=== PATIENT | female | born 2000 | race Caucasian/White ===

== ENCOUNTER 2019-09-05 10:22 | Emergency (ER) | payer SELFPAY ==
--- NOTE | ~2019-09-05 | XR_ITS ---
XR ankle RT min 3V DATE: 09/05/2019 10:53 INDICATION: Patient fell. [place] a dorsal foot pop a few days ago. TECHNIQUE: 4 views COMPARISON: None FINDINGS: No fracture or dislocation of the ankle or disruption of the ankle mortise. IMPRESSION: Negative Reviewed, dictated and finalized at location A. IMPRESSION: Negative
--- NOTE | 2019-09-05 10:33 | ED.GENADULT ---
HPI - General Adult General Chief complaint: Extremity Injury, Lower Stated complaint: Right foot injury Time Seen by Provider: 09/05/19 10:33 Source: patient Mode of arrival: ambulatory Limitations: no limitations History of Present Illness HPI narrative: 19-year-old female patient [facility] complaints of right ankle pain x3 days. Patient states that she was playing soccer and felt a pop to her ankle. Patient states she has been trying to wrap it, ice it, taking ibuprofen as well as elevating it and continues to have pain. Patient states she is actually started limping due to the pain. Patient denies any numbness or tingling to the toes. Patient states that most of the pain is to the anterior ankle. Related Data Home Medications Medication Instructions Recorded Confirmed budesonide-formoterol [Symbicort] 2 puff INHALATION Q12H 09/05/19 09/05/19 clonazepam 0.5 mg PO BID 09/05/19 09/05/19 etonogestrel [Nexplanon] 1 implant SUBDERMAL ONCE 09/05/19 09/05/19 lamotrigine 100 mg PO DAILY 09/05/19 09/05/19 montelukast 10 mg PO DAILY 09/05/19 09/05/19 propranolol 10 mg PO TID 09/05/19 09/05/19 Allergies Allergy/AdvReac Type Severity Reaction Status Date / Time No Known Allergies Allergy Verified 09/05/19 10:46 Review of Systems Review of Systems: Narrative: CONSTITUTIONAL: Denies fever, chills, or sweats. EYES: Denies visual changes, redness, or discharge. ENT: Denies rhinorrhea, congestion, sore throat, or otalgia. CARDIOVASCULAR: Denies chest pain, palpitations, or edema. RESPIRATORY: Denies cough or dyspnea. GASTROINTESTINAL: Denies abdominal pain, nausea, vomiting, or diarrhea. GENITOURINARY: Denies dysuria or hematuria. SKIN: Denies rash or itching. MUSCULOSKELETAL: Denies back pain, joint pain, or myalgia. Positive right ankle pain x3 days NEUROLOGIC: Denies headache, numbness, or weakness. PSYCHIATRIC: Denies anxiety or depression. [facility] Comments At the time of my signature I agree with nursing past medical history, surgical, social, and family history. There is no relevant family history pertinent to the presenting complaint. Exam Narrative: Exam Narrative: GENERAL: Well-appearing, well-nourished, and in no acute distress. HEAD: Normocephalic, atraumatic. EYES: PERRLA and EOMI. ENT: Nares clear, no rhinorrhea or epistaxis. Mucous membranes moist. NECK: Supple. No lymphadenopathy CHEST: Clear to auscultation. No respiratory distress. HEART: Regular rate and rhythm. No murmur heard. Normal peripheral pulses. ABDOMEN: Soft, nontender, nondistended, normal active bowel sounds. EXTREMITIES: Patient is able to bear weight and ambulate with pain to the right ankle. The R ankle is without obvious asymmetry or deformity when compared to the L ankle. Patient can flex/extend, invert/linda but does have pain with all motions. No obvious surface trauma, ecchymosis, or soft tissue swelling. Patient has tenderness and pain noted to the middle of the anterior ankle on palpation. No body tenderness to palpation over the medial or lateral malleolus. Pain to the anterior talofibular ligament, no pain noted to palpation of the posterior talofibular ligament, calcaneofibular ligament nontender and without swelling. No tenderness or deformity of the midfoot or over the proximal fifth metatarsal. Good DP and posterior tibial pulses and sensation to light touch normal. Talar tilt test is negative for ligament laxity to valgus or vargus stress. Negative anterior draw. Peroneal nerve is intact with strong eversion and plantar flexion. SKIN: Warm, dry, no rash. NEURO: No focal deficits. Alert and oriented x3. Course Reevaluation(s) Reevaluation #1: Reevaluated patient after her x-ray resulted. Discussed with her that there is no fractures noted on the x-ray at this time. Discussed with her this is most likely a sprain we will go ahead and wrap her right foot and ankle with an Alex wrap. Discussed with her that she can c
[2019-09-05 10:36] VITALS: BP 152/79; PULSE 89; RESP 18; TEMP 36.8; O2SAT 98
== END 2019-09-05 12:10 | disposition home or self-care (01) ==
PROVIDERS: Emergency Provider Nurse Practitioner Family
DX: S93.401A Sprain of unspecified ligament of right ankle, initial encounter (principal); X58.XXXA Exposure to other specified factors, initial encounter; Y93.66 Activity, soccer; J45.909 Unspecified asthma, uncomplicated; F31.9 Bipolar disorder, unspecified; F41.0 Panic disorder [episodic paroxysmal anxiety]
CPT/HCPCS: 73610; 99213; G0463

== ENCOUNTER 2020-02-11 09:46 | Emergency (ER) | payer OTHER, SELFPAY ==
[2020-02-11 09:58] VITALS: BP 123/76; PULSE 86; RESP 18; TEMP 36.7; O2SAT 100
--- NOTE | 2020-02-11 09:59 | ED.FEMALEGU ---
HPI - Female Genitourinary General Chief complaint: Urogenital-Female Stated complaint: UTI Time Seen by Provider: 02/11/20 09:59 Source: patient History of Present Illness HPI Narrative: Patient presents thinking that she has a urinary tract infection. Patient states her symptoms have been going on for the past 3 days. Patient reports low back pain, urinary frequency and dysuria. Patient denies any flank pain denies any vaginal discharge no abdominal pain no pelvic pain no concern for STDs. Patient denies any gross hematuria. Patient states she gets frequent urinary tract infections and her last one was about 2 months ago. Patient states she is eating and drinking well and denies any COVID-19 symptoms and no COVID-19 exposure. Related Data Home Medications Medication Instructions Recorded Confirmed budesonide-formoterol [Symbicort] 2 puff INHALATION Q12H 09/05/19 09/05/19 clonazepam 0.5 mg PO BID 09/05/19 09/05/19 etonogestrel [Nexplanon] 1 implant SUBDERMAL ONCE 09/05/19 09/05/19 lamotrigine 100 mg PO DAILY 09/05/19 09/05/19 montelukast 10 mg PO DAILY 09/05/19 09/05/19 propranolol 10 mg PO TID 09/05/19 09/05/19 Allergies Allergy/AdvReac Type Severity Reaction Status Date / Time No Known Allergies Allergy Verified 09/05/19 10:46 Review of Systems Review of Systems: Narrative: CONSTITUTIONAL: Denies fever, chills, or sweats. EYES: Denies visual changes, redness, or discharge. ENT: Denies rhinorrhea, congestion, sore throat, or otalgia. CARDIOVASCULAR: Denies chest pain, palpitations, or edema. RESPIRATORY: Denies cough or dyspnea. GASTROINTESTINAL: Denies abdominal pain, nausea, vomiting, or diarrhea. GENITOURINARY: Denies hematuria. Reports urinary frequency and burning with urination SKIN: Denies rash or itching. MUSCULOSKELETAL: Denies joint pain, or myalgia. Reports low back pain NEUROLOGIC: Denies headache, numbness, or weakness. PSYCHIATRIC: Denies anxiety or depression. [facility] Comments At time of signature, agree with nursing past medical, surgical, social and family history. There is no relevant family history pertinent to the presenting complaint Exam Narrative: Exam Narrative: GENERAL: Well-appearing, well-nourished, and in no acute distress. HEAD: Normocephalic, atraumatic. EYES: PERRLA and EOMI. ENT: Nares clear, no rhinorrhea or epistaxis. Mucous membranes moist. NECK: Supple. CHEST: Clear to auscultation. No respiratory distress. HEART: Regular rate and rhythm. No murmur heard. Normal peripheral pulses. ABDOMEN: Soft, nontender, nondistended, normal active bowel sounds. EXTREMITIES: Normal range of motion. No edema. SKIN: Warm, dry, no rash. NEURO: No focal deficits. Alert and oriented x3. [place]ak Coma Scale Eye Opening: Spontaneous 4 [place]ak Coma Scale Motor: Obeys Commands 6 [place] Coma Scale Verbal: Oriented 5 [place]ak Coma Scale Total 15 Course Vital Signs Vital signs: Vital Signs Temperature 36.7 C 02/11/20 09:58 Pulse Rate 86 02/11/20 09:58 Respiratory Rate 18 02/11/20 09:58 Blood Pressure 123/76 02/11/20 09:58 Pulse Oximetry 100 02/11/20 09:58 Temperature 36.7 C 02/11/20 09:58 Pulse Rate 86 02/11/20 09:58 Respiratory Rate 18 02/11/20 09:58 Blood Pressure 123/76 02/11/20 09:58 Pulse Oximetry 100 02/11/20 09:58 MDM - Female Genitourinary Differential Diagnosis Differential diagnosis: Likely urinary tract infection, bacterial vaginosis and vaginitis Lab Data Labs: Urine Glucose Negative Reference Range: Negative Urine Bilirubin Negative Reference Range: Negative Urine Ketone Negative Reference Range: Negative Urine Specific [place] 1.025 Reference Range:1.001-1.035 Urine Blood Negative Reference Range: Negative * * Urine pH 6.5 Reference Ran
== END 2020-02-11 10:22 | disposition home or self-care (01) ==
PROVIDERS: Emergency Provider Nurse Practitioner Family; PCP Nurse Practitioner Family
DX: N39.0 Urinary tract infection, site not specified (principal); J45.909 Unspecified asthma, uncomplicated; F41.9 Anxiety disorder, unspecified; F31.9 Bipolar disorder, unspecified
CPT/HCPCS: 81003; 87086; 87088; 99213; G0463

== ENCOUNTER 2020-02-26 19:13 | Emergency (ER) | payer OTHER, SELFPAY ==
[2020-02-26 19:24] VITALS: BP 139/93; PULSE 108; RESP 16; TEMP 37.1; O2SAT 98
--- NOTE | 2020-02-26 19:41 | ED.LOWEXIN ---
HPI - Extremity Injury (Lower) General Chief Complaint: Extremity Injury, Lower Stated Complaint: left foot pain Time Seen by Provider: 02/26/20 19:36 Source: patient and RN notes reviewed Mode of arrival: ambulatory Limitations: no limitations History of Present Illness HPI Narrative: Patient presents today with left foot pain x2 months, worse over the past week. Denies injury or trauma. Denies swelling. Denies numbness or tingling in the leg or foot. Currently rates her pain 7/10 which she has been using Tylenol, ibuprofen, ice, icy hot, and Alex wrap, and support brace without relief. Pain increases with standing and walking. Patient has a telephone appointment scheduled with her primary care provider in 2 days. MD complaint: other (Left foot pain) Related Data Home Medications Medication Instructions Recorded Confirmed budesonide-formoterol [Symbicort] 2 puff INHALATION Q12H 09/05/19 02/26/20 clonazepam 0.5 mg PO BID 09/05/19 02/26/20 etonogestrel [Nexplanon] 1 implant SUBDERMAL ONCE 09/05/19 02/26/20 lamotrigine 100 mg PO DAILY 09/05/19 02/26/20 montelukast 10 mg PO DAILY 09/05/19 02/26/20 propranolol 10 mg PO TID 09/05/19 02/26/20 trazodone 100 mg PO HS 02/26/20 02/26/20 Allergies Allergy/AdvReac Type Severity Reaction Status Date / Time No Known Allergies Allergy Verified 02/26/20 19:31 Review of Systems Review of Systems: Narrative: CONSTITUTIONAL: Denies body aches, fever, chills, or sweats. EYES: Denies visual changes, redness, or discharge. ENT: Denies rhinorrhea, congestion, sore throat, or otalgia. CARDIOVASCULAR: Denies chest pain, palpitations, or edema. RESPIRATORY: Denies cough or dyspnea. GASTROINTESTINAL: Denies abdominal pain, nausea, vomiting, or diarrhea. GENITOURINARY: Denies dysuria or hematuria. SKIN: Denies rash, itching, or wounds. MUSCULOSKELETAL: Denies back pain, joint pain, or myalgia. + Left foot pain NEUROLOGIC: Denies headache, numbness, tingling, or weakness. PSYCH: Denies depression or anxiety. [facility] Comments At time of signature, I have reviewed and agree with nursing past medical, surgical, social and family history unless otherwise noted. Please see nursing chart for further information. There is no relevant family history pertinent to the presenting complaint Exam Narrative: Exam Narrative: GENERAL: Well-appearing, well-nourished, and in no acute distress. HEAD: Normocephalic, atraumatic. EYES: EOMI. No redness or drainage. Conjunctivae normal. ENT: Mucous membranes pink and moist. NECK: Normal AROM. Supple. No lymphadenopathy. CHEST: No respiratory distress. EXTREMITIES: Left foot: Tenderness to plantar fascia, most pronounced with foot in flexed position. No edema noted. No erythema, ecchymosis. Distal sensation intact. Capillary refill normal. Pedal pulse normal. Full range of motion of the ankle and all toes. SKIN: Warm, dry, no rash. Capillary refill normal. Normal skin turgor. NEURO: No focal deficits. Alert and oriented x3. Gait steady. PSYCH: Normal affect. No signs of depression or anxiety. Course Vital Signs Vital signs: Vital Signs Temperature 98.8 F 02/26/20 19:24 Pulse Rate 108 H 02/26/20 19:24 Respiratory Rate 16 02/26/20 19:24 Blood Pressure 139/93 H 02/26/20 19:24 Pulse Oximetry 98 02/26/20 19:24 Temperature 98.8 F 02/26/20 19:24 Pulse Rate 108 H 02/26/20 19:24 Respiratory Rate 16 02/26/20 19:24 Blood Pressure 139/93 H 02/26/20 19:24 Pulse Oximetry 98 02/26/20 19:24 Reviewed. Pt has been instructed to follow up with her PCP regarding her elevated blood pressure today. MDM - Extremity Injury (Lower) Differential Diagnosis Differential diagnosis: Likely other (Foot sprain, heel spur, arthritis, gout, plantar fasciitis, stress fracture) Critical Care Time Critical Care Time Critical Care Time: No Discharge Plan Discharge Clinical Impression: Plantar fasciitis of left foot Patient Dispos
== END 2020-02-26 19:49 | disposition home or self-care (01) ==
PROVIDERS: Emergency Provider Nurse Practitioner; PCP Nurse Practitioner Family
DX: M72.2 Plantar fascial fibromatosis (principal); J45.909 Unspecified asthma, uncomplicated; K21.9 Gastro-esophageal reflux disease without esophagitis; F41.0 Panic disorder [episodic paroxysmal anxiety]; F31.9 Bipolar disorder, unspecified
CPT/HCPCS: 99213; G0463

== ENCOUNTER 2020-04-19 14:31 | Emergency (ER) | payer OTHER, SELFPAY ==
[2020-04-19 14:35] VITALS: BP 134/86; PULSE 90; RESP 18; TEMP 36.4; O2SAT 98
--- NOTE | 2020-04-19 15:13 | ED.WOUNDLAC ---
HPI - Wound/Laceration General Chief Complaint: Wound/Laceration Stated Complaint: right toe pain Time Seen by Provider: 04/19/20 15:05 Source: patient and RN notes reviewed History of Present Illness HPI narrative: Patient is a 19-year-old female who presents the urgent care with complaints of an infected right great toenail. Patient states that it became painful and pussy approximately 1 to 2 weeks ago and she has been using Neosporin, Alcohol, soaking it in plain Dial soap and water, and covering the toe when she is having to work and wear shoes. Patient states that her mother is a nurse and has been directing her on proper care. Patient denies of any increased redness or swelling but states that it is not healing. Denies of any fever, chills, nausea, vomiting. No other acute complaints. No acute distress noted. Patient aware of the plan of care. Some parts of this dictation were generated by voice recognition software and may contain typographical and/or grammatical inaccuracies. Related Data Home Medications Medication Instructions Recorded Confirmed budesonide-formoterol [Symbicort] 2 puff INHALATION Q12H 09/05/19 04/19/20 clonazepam 0.5 mg PO BID 09/05/19 04/19/20 montelukast 10 mg PO DAILY 09/05/19 04/19/20 propranolol 10 mg PO TID 09/05/19 04/19/20 trazodone 100 mg PO HS 02/26/20 04/19/20 albuterol sulfate 2 puff INHALATION Q4H PRN 04/19/20 04/19/20 cetirizine 10 mg PO DAILY 04/19/20 04/19/20 diclofenac sodium 50 mg PO BID 04/19/20 04/19/20 lamotrigine 150 mg PO BID 04/19/20 04/19/20 Allergies Allergy/AdvReac Type Severity Reaction Status Date / Time No Known Allergies Allergy Verified 04/19/20 14:50 Review of Systems Review of Systems: Narrative: CONSTITUTIONAL: Denies fever, chills, or sweats. EYES: Denies visual changes, redness, or discharge. ENT: Denies rhinorrhea, congestion, sore throat, or otalgia. CARDIOVASCULAR: Denies chest pain, palpitations, or edema. RESPIRATORY: Denies cough or dyspnea. GASTROINTESTINAL: Denies abdominal pain, nausea, vomiting, or diarrhea. GENITOURINARY: Denies dysuria or hematuria. SKIN: Reports of redness, swelling and pus draining from the lateral aspect of the right great toe MUSCULOSKELETAL: Denies back pain, joint pain, or myalgia. NEUROLOGIC: Denies headache, numbness, or weakness. All other systems reviewed are negative, except as documented in HPI. [facility] Comments At the time of my signature, I reviewed and agree with the nursing past medical, surgical, social, and family history. There is no relevant family history pertinent to the patient complaint. Exam Narrative: Exam Narrative: GENERAL: This is a well-nourished, well-developed patient, in no apparent distress. HEAD: normocephalic, atraumatic. EYES: PERRL. Sclera clear/white. Vision is grossly intact. EARS: External ears normal, auditory canals clear and without drainage, TMs normal without perforation. Hearing grossly intact. NOSE: External nose normal with no obvious nasal discharge, nares without redness, no rhinorrhea. THROAT: Mucous membranes moist, posterior pharynx clear. NECK: Neck supple, SKIN: 1 cm area of redness and mild edema to the lateral aspect of the right great toe with clear to yellow drainage. Warm, intact with no suspicious lesions or rash, good texture and turgor. NEURO: awake, alert, and oriented to person, place and time. There were no obvious focal neurologic abnormalities. EXTREMITIES: No clubbing, cyanosis, or edema. Positive strong right pedal pulse with capillary refill less than 2 seconds. No lower extremity edema Course Vital Signs Vital signs: Vital Signs Temperature 97.6 F 04/19/20 14:35 Pulse Rate 90 04/19/20 14:35 Respiratory Rate 18 04/19/20 14:35 Blood Pressure 134/86 04/19/20 14:35 Pulse Oximetry 98 04/19/20 14:35 Temperature 97.6 F 04/19/20 14:35 Pulse Rate 90 04/19/20 14:35 Respiratory Rate 18 04/19/20 14:35 Blood Pressure 134/86
== END 2020-04-19 15:20 | disposition home or self-care (01) ==
PROVIDERS: Emergency Provider Nurse Practitioner Family; PCP Nurse Practitioner Family
DX: L60.0 Ingrowing nail (principal); J45.909 Unspecified asthma, uncomplicated; K21.9 Gastro-esophageal reflux disease without esophagitis; F41.9 Anxiety disorder, unspecified; F31.9 Bipolar disorder, unspecified
CPT/HCPCS: 99213; G0463

== ENCOUNTER 2020-09-11 13:08 | Emergency (ER) | payer OTHER, SELFPAY ==
[2020-09-11 13:15] VITALS: BP 143/90; PULSE 120; RESP 16; TEMP 37.2; O2SAT 98
--- NOTE | 2020-09-11 13:31 | ED.WOUNDLAC ---
HPI - Wound/Laceration General Chief Complaint: Wound/Laceration Stated Complaint: Laceration/Wound Source: patient Mode of arrival: ambulatory Limitations: no limitations History of Present Illness HPI narrative: Patient is a 20 year old female who presents with laceration to left forearm. Patient reports forearm cut with a knife. She reports a history of cutting. She reports cutting forearm with knife intentionally. Patient denies suicidal ideation, homicidal ideation or intent to harm self at this time. Patient is slightly tearful and states i am mad for doing this to my self, it's been a long time . Patient reports last admission to mental health facility in 2013. She denies all other complaints at this time. Patient reports tetanus up to date. Related Data Home Medications Medication Instructions Recorded Confirmed budesonide-formoterol [Symbicort] 2 puff INHALATION Q12H 09/05/19 09/11/20 clonazepam 0.5 mg PO BID 09/05/19 09/11/20 montelukast 10 mg PO DAILY 09/05/19 09/11/20 propranolol 10 mg PO TID 09/05/19 09/11/20 trazodone 100 mg PO HS 02/26/20 09/11/20 albuterol sulfate 2 puff INHALATION Q4H PRN 04/19/20 09/11/20 cetirizine 10 mg PO DAILY 04/19/20 09/11/20 diclofenac sodium 50 mg PO BID 04/19/20 09/11/20 lamotrigine 150 mg PO BID 04/19/20 09/11/20 Allergies Allergy/AdvReac Type Severity Reaction Status Date / Time No Known Allergies Allergy Verified 09/11/20 13:25 Review of Systems Review of Systems: Narrative: CONSTITUTIONAL: Denies fever, chills, or sweats. EYES: Denies visual changes, redness, or discharge. ENT: Denies rhinorrhea, congestion, sore throat, or otalgia. CARDIOVASCULAR: Denies chest pain, palpitations, or edema. RESPIRATORY: Denies cough or dyspnea. GASTROINTESTINAL: Denies abdominal pain, nausea, vomiting, or diarrhea. GENITOURINARY: Denies dysuria or hematuria. SKIN:Laceration to left forearm MUSCULOSKELETAL: Denies back pain, joint pain, or myalgia. NEUROLOGIC: Denies headache, numbness, dizziness, or weakness. PSYCHIATRIC: Denies anxiety or depression. [facility], [facility] Past Medical History Medical History (Updated 09/12/20 @ 00:00 by Yomi Brice) Anxiety Bipolar disorder Bronchitis Deliberate self-cutting Depression Foot fracture, right GERD (gastroesophageal reflux disease) Nasal fracture UTI (urinary tract infection) Surgical History Surgical History No significant past surgical history Family History Family History Other No significant family history Social History Social History (Updated 09/11/20 @ 13:36 by ABRAHAM Lacey) Smoking status: Former smoker Alcohol intake: current Alcohol use details: occasional Substance use: never Living arrangements: with family Comments At the time of signature, I have reviewed and agree with nursing past medical, surgical, social, and family history unless otherwise noted. Please see nursing chart for further information. There is no relevant family history pertinent to the presenting complaint. Exam Narrative: Exam Narrative: GENERAL: Well-appearing, well-nourished, and in no acute distress. HEAD: Normocephalic, atraumatic. EYES: EOMI. No redness or drainage. Conjunctiva are normal. ENT: Mucous membranes pink and moist. CHEST: No respiratory distress. HEART: Regular rate and rhythm. EXTREMITIES: Normal range of motion. No edema. SKIN: Approximate 4 cm linear laceration to left forearm, bleeding controlled with dressing at this time. NEURO: No focal deficits. Alert and oriented x3. Gait steady. PSYCH: Normal affect. No signs of depression or anxiety. Course Vital Signs Vital signs: Vital Signs Temperature 37.2 C 09/11/20 13:15 Pulse Rate 120 H 09/11/20 13:15 Respiratory Rate 16 09/11/20 13:15 Blood Pressure 143/90 H 09/11/20 13:15 Pulse Oximetry 98 09/11/20 13:15
== END 2020-09-11 14:20 | disposition home or self-care (01) ==
PROVIDERS: Emergency Provider Nurse Practitioner; PCP Nurse Practitioner Family
DX: S51.812A Laceration without foreign body of left forearm, initial encounter (principal); X78.1XXA Intentional self-harm by knife, initial encounter; Z87.891 Personal history of nicotine dependence; K21.9 Gastro-esophageal reflux disease without esophagitis; F41.9 Anxiety disorder, unspecified; F31.9 Bipolar disorder, unspecified
CPT/HCPCS: 12002; 99212; G0463

== ENCOUNTER 2020-12-25 18:51 | Emergency (ER) | payer OTHER, SELFPAY ==
--- NOTE | ~2020-12-25 | XR_ITS ---
EXAMINATION: XR foot RT min 3V DATE: 12/25/2020 19:19 INDICATION: Right foot pain TECHNIQUE: Dorsoplantar, lateral, and 2 oblique views of the right foot were obtained. COMPARISON: 02/24/2014 FINDINGS: There is soft tissue swelling of the first and second toes and overlying the metatarsals. N o fracture is identified. The joint spaces are normal. Bone alignment is maintained. IMPRESSION: 1. Soft tissue swelling without acute osseous abnormality. Reviewed, dictated and finalized at location A.
[2020-12-25 18:57] VITALS: BP 141/89; PULSE 94; RESP 20; TEMP 37.3; O2SAT 99
--- NOTE | 2020-12-25 19:17 | ED.LOWEXIN ---
HPI - Extremity Injury (Lower) General Chief Complaint: Extremity Injury, Lower Stated Complaint: Possible broken Toe on right Foot Time Seen by Provider: 12/25/20 19:17 Source: patient, RN notes reviewed and old records reviewed Mode of arrival: ambulatory Limitations: no limitations History of Present Illness HPI Narrative: 20 year old female who presents to express care with complaints of pain to her right great toe and up into her dorsal foot after accidently hitting her toe with a metal tennis racket. Patient has pain mainly to the top of the proximal right big toe. Patient states that she can hardly bear weight to her right foot. Patient states that she has applied ice to her toe and dorsal foot. complaint: foot injury Onset (ago): minute(s) (30 minutes ago) Injury: Right: toes Type of Injury: blunt Place: street/outdoors Severity: severe Severity scale (1-10): 7 Relieving factors: cold therapy Exacerbating factors: weight bearing Context: direct blow Associated symptoms: swelling Treatments prior to arrival: cold therapy Related Data Home Medications Medication Instructions Recorded Confirmed budesonide-formoterol [Symbicort] 2 puff INHALATION Q12H 09/05/19 12/25/20 clonazepam 0.5 mg PO BID 09/05/19 12/25/20 montelukast 10 mg PO DAILY 09/05/19 12/25/20 propranolol 10 mg PO TID 09/05/19 12/25/20 trazodone 100 mg PO HS 02/26/20 09/11/20 albuterol sulfate 2 puff INHALATION Q4H PRN 04/19/20 09/11/20 cetirizine 10 mg PO DAILY 04/19/20 12/25/20 lamotrigine 150 mg PO BID 04/19/20 12/25/20 Allergies Allergy/AdvReac Type Severity Reaction Status Date / Time No Known Allergies Allergy Verified 09/11/20 13:25 Review of Systems Review of Systems: Narrative: CONSTITUTIONAL: Denies fever, chills, or sweats. EYES: Denies visual changes, redness, or discharge. ENT: Denies rhinorrhea, congestion, sore throat, or otalgia. CARDIOVASCULAR: Denies chest pain, palpitations, or edema. RESPIRATORY: Denies cough or dyspnea. GASTROINTESTINAL: Denies abdominal pain, nausea, vomiting, or diarrhea. GENITOURINARY: Denies dysuria or hematuria. SKIN: Denies rash or itching. MUSCULOSKELETAL: Denies back pain,positive pain to right great toe and dorsal foot, or myalgia. NEUROLOGIC: Denies headache, numbness, or weakness. PSYCHIATRIC: Positive for history of anxiety or depression. All systems reviewed & are unremarkable except as noted in HPI and below PMFSH Past Medical History Medical History Anxiety Bipolar disorder Bronchitis Deliberate self-cutting Depression Foot fracture, right GERD (gastroesophageal reflux disease) Nasal fracture UTI (urinary tract infection) Surgical History Surgical History No significant past surgical history Family History Family History Other No significant family history Social History Social History Smoking status: Former smoker Alcohol intake: current Alcohol use details: occasional Substance use: never Gender identity (if verbalized by the patient): Female Comments At time of signature, agree with nursing past medical, surgical, social and family history. There is no relevant family history pertinent to the presenting complaint Exam Narrative: Exam Narrative: GENERAL: Well-appearing, well-nourished, and in no acute distress. HEAD: Normocephalic, atraumatic. EYES: PERRLA and EOMI. ENT: Nares clear, no rhinorrhea or epistaxis. Mucous membranes moist.TM's normal with good light reflex, throat pink with no lesions or exudates no tonsil enlargement. NECK: Supple. no lymphadenopathy CHEST: Clear to auscultation. No respiratory distress.SAO2 99% on room air HEART: Regular rate and rhythm. No murmur heard. Normal peripheral pulses. ABDOMEN: Soft, nontender, nond
--- NOTE | 2020-12-25 19:45 | ED.LOWEXIN ---
HPI - Extremity Injury (Lower) General Chief Complaint: Extremity Injury, Lower Stated Complaint: Possible broken Toe on right Foot Time Seen by Provider: 12/25/20 19:17 Source: patient, RN notes reviewed and old records reviewed Mode of arrival: ambulatory Limitations: no limitations Related Data Home Medications Medication Instructions Recorded Confirmed budesonide-formoterol [Symbicort] 2 puff INHALATION Q12H 09/05/19 12/25/20 clonazepam 0.5 mg PO BID 09/05/19 12/25/20 montelukast 10 mg PO DAILY 09/05/19 12/25/20 propranolol 10 mg PO TID 09/05/19 12/25/20 trazodone 100 mg PO HS 02/26/20 09/11/20 albuterol sulfate 2 puff INHALATION Q4H PRN 04/19/20 09/11/20 cetirizine 10 mg PO DAILY 04/19/20 12/25/20 lamotrigine 150 mg PO BID 04/19/20 12/25/20 Allergies Allergy/AdvReac Type Severity Reaction Status Date / Time No Known Allergies Allergy Verified 09/11/20 13:25 Review of Systems Review of Systems: Narrative: CONSTITUTIONAL: Denies fever, chills, or sweats. EYES: Denies visual changes, redness, or discharge. ENT: Denies rhinorrhea, congestion, sore throat, or otalgia. CARDIOVASCULAR: Denies chest pain, palpitations, or edema. RESPIRATORY: Denies cough or dyspnea. GASTROINTESTINAL: Denies abdominal pain, nausea, vomiting, or diarrhea. GENITOURINARY: Denies dysuria or hematuria. SKIN: Denies rash or itching. MUSCULOSKELETAL: Denies back pain, positive pain to right great toe, or myalgia. NEUROLOGIC: Denies headache, numbness, or weakness. PSYCHIATRIC: Positive history of anxiety or depression. All systems reviewed & are unremarkable except as noted in HPI and below PMFSH Past Medical History Medical History Anxiety Bipolar disorder Bronchitis Deliberate self-cutting Depression Foot fracture, right GERD (gastroesophageal reflux disease) Nasal fracture UTI (urinary tract infection) Surgical History Surgical History No significant past surgical history Family History Family History Other No significant family history Social History Social History Smoking status: Former smoker Alcohol intake: current Alcohol use details: occasional Substance use: never Gender identity (if verbalized by the patient): Female Comments At time of signature, agree with nursing past medical, surgical, social and family history. There is no relevant family history pertinent to the presenting complaint Exam Narrative: Exam Narrative: GENERAL: Well-appearing, well-nourished, and in no acute distress. HEAD: Normocephalic, atraumatic. EYES: PERRLA and EOMI. ENT: Nares clear, no rhinorrhea or epistaxis. Mucous membranes moist. NECK: Supple. No lymphadenopathy CHEST: Clear to auscultation. No respiratory distress. SaO2 99% on room air HEART: Regular rate and rhythm. No murmur heard. Normal peripheral pulses. ABDOMEN: Soft, nontender, nondistended, normal active bowel sounds. EXTREMITIES: Normal range of motion. No edema. With exception to right great toe which is swollen with pain and decreased mobility strong right pedal pulse with brisk nail bed refill SKIN: Warm, dry, no rash. NEURO: No focal deficits. Alert and oriented x3. Course Vital Signs Vital signs: Vital Signs Temperature 37.3 C 12/25/20 18:57 Pulse Rate 94 12/25/20 18:57 Respiratory Rate 20 12/25/20 18:57 Blood Pressure 141/89 H 12/25/20 18:57 Pulse Oximetry 99 12/25/20 18:57 Temperature 37.3 C 12/25/20 18:57 Pulse Rate 94 12/25/20 18:57 Respiratory Rate 20 12/25/20 18:57 Blood Pressure 141/89 H 12/25/20 18:57 Pulse Oximetry 99 12/25/20 18:57 Critical Care Time Critical Care Time Critical Care Time: No Discharge Plan Discharge Clinical Impression: Contusion of foot including to
== END 2020-12-25 19:55 | disposition home or self-care (01) ==
PROVIDERS: Emergency Provider Registered Nurse; PCP Nurse Practitioner Family
DX: S90.31XA Contusion of right foot, initial encounter (principal); S90.111A Contusion of right great toe without damage to nail, initial encounter; W21.12XA Struck by tennis racquet, initial encounter; F41.9 Anxiety disorder, unspecified; F31.9 Bipolar disorder, unspecified; K21.9 Gastro-esophageal reflux disease without esophagitis
CPT/HCPCS: 73630; 99213; G0463

== ENCOUNTER 2021-06-22 18:01 | Emergency (ER) | payer OTHER, SELFPAY ==
[2021-06-22 18:16] VITALS: BP 133/94; PULSE 122; RESP 16; TEMP 37.7; O2SAT 99
--- NOTE | 2021-06-22 18:48 | ED.URI ---
HPI - URI/Sore Throat General Chief Complaint: Upper Respiratory Infection Stated Complaint: sore throat ear pain aches Time Seen by Provider: 06/22/21 18:48 Source: patient History of Present Illness HPI Narrative: Patient presents with a positive exposure to COVID-19 4 days ago and symptoms started 1 day ago. Patient is fully vaccinated has a nasal congestion scratchy throat cough and bilateral ear pain. No shortness of breath no chest pain. Related Data Home Medications Medication Instructions Recorded Confirmed budesonide-formoterol [Symbicort] 2 puff INHALATION Q12H 09/05/19 06/22/21 clonazepam 0.5 mg PO BID 09/05/19 06/22/21 montelukast 10 mg PO DAILY 09/05/19 06/22/21 propranolol 10 mg PO TID 09/05/19 06/22/21 albuterol sulfate 2 puff INHALATION Q4H PRN 04/19/20 06/22/21 cetirizine 10 mg PO DAILY 04/19/20 06/22/21 lamotrigine 150 mg PO BID 04/19/20 06/22/21 Allergies Allergy/AdvReac Type Severity Reaction Status Date / Time No Known Allergies Allergy Verified 06/22/21 18:32 Review of Systems Review of Systems: CONSTITUTIONAL: Denies chills, or sweats. Reports fever and generalized body aches EYES: Denies visual changes, redness, or discharge. ENT: Denies otalgia. Reports nasal congestion runny nose and sore throat CARDIOVASCULAR: Denies chest pain, palpitations, or edema. RESPIRATORY: Denies dyspnea. Reports occasional cough GASTROINTESTINAL: Denies abdominal pain, nausea, vomiting, or diarrhea. GENITOURINARY: Denies dysuria or hematuria. SKIN: Denies rash or itching. MUSCULOSKELETAL: Denies back pain, joint pain, or myalgia. Reports generalized body aches NEUROLOGIC: Denies headache, numbness, or weakness. PSYCHIATRIC: Denies anxiety or depression. [facility] Past Medical History Medical History Anxiety Bipolar disorder Bronchitis Deliberate self-cutting Depression Foot fracture, right GERD (gastroesophageal reflux disease) Nasal fracture UTI (urinary tract infection) Surgical History Surgical History No significant past surgical history Family History Family History Other No significant family history Social History Social History Smoking status: Former smoker Alcohol intake: current Alcohol use details: occasional Substance use: never Gender identity (if verbalized by the patient): Female Comments At time of signature, agree with nursing past medical, surgical, social and family history. There is no relevant family history pertinent to the presenting complaint Exam Narrative: The patient is a well-developed, well-nourished in no acute distress. SKIN: Skin is warm and dry without erythema, swelling or exudate. There is good turgor. No tenting. HEAD: Atraumatic. Normocephalic. No temporal or scalp tenderness. EYES: Moist and bright. Sclera and conjunctivae normal. No discharge. PERRLA. Extraocular motions intact. Gross visual acuity intact. EARS: Pinna is normal shape and contour. Clear external auditory canals. TM pearly mijares with good cone of light, no erythema or suppuration. Bilateral cerumen noted no gross hearing deficit. NOSE: pink, moist mucosa with good air movement. Clear rhinorrhea without nasal flaring. Septum midline. Mouth: moist mucous membranes. THROAT; mild erythema noted to posterior oropharynx with moderate postnasal drainage. Without exudate or ulceration.. Uvula midline. Normal movement of soft palate. NECK: Supple and nontender with full range of motion without discomfort. No meningeal signs. LUNGS: Equal and bilateral breath sounds without wheezes, rales or rhonchi. CHEST: The chest wall is without retractions or use of accessory muscles. HEART: Has a regular rate and rhythm without murmur, gallops, click or rub. ABDOMEN: Soft, nonte
[2021-06-25 19:02] LABS: SARS-CoV-2 RNA PCR Positive
== END 2021-06-22 19:10 | disposition home or self-care (01) ==
PROVIDERS: Emergency Provider Nurse Practitioner Family; PCP Nurse Practitioner Family
DX: U07.1 COVID-19 (principal); Z87.891 Personal history of nicotine dependence; K21.9 Gastro-esophageal reflux disease without esophagitis; F31.9 Bipolar disorder, unspecified; F41.9 Anxiety disorder, unspecified
CPT/HCPCS: 99213; C9803; G0463; U0003; U0005

== ENCOUNTER 2021-08-03 08:03 | Emergency (ER) | payer OTHER, SELFPAY ==
[2021-08-03 08:07] VITALS: BP 136/68; PULSE 83; RESP 16; TEMP 36.8; O2SAT 100
--- NOTE | 2021-08-03 08:22 | ED.DENTAL ---
HPI - Dental/Oral General Chief complaint: Dental/Oral Stated complaint: Dental pain Time Seen by Provider: 08/03/21 08:22 Source: patient Mode of arrival: ambulatory History of Present Illness HPI Narrative: 21-year-old female presented for complaint of left lower dental pain for approximately 1 week. She endorses a history of dental abscesses and is scheduled for possible extraction on 08/17/2021 with [facility]. They told her to be seen sooner for antibiotic treatment for her complaints. Has been taking Aleve for pain which helps, also doing salt water gargles. States she had a fever over 101 yesterday. She denies difficulty swallowing or breathing, wheezing, associated nausea, vomiting, headache, dizziness, ear pain. MD Complaint: tooth pain Related Data Home Medications Medication Instructions Recorded Confirmed budesonide-formoterol [Symbicort] 2 puff INHALATION Q12H 09/05/19 08/03/21 clonazepam 0.5 mg PO BID 09/05/19 08/03/21 montelukast 10 mg PO DAILY 09/05/19 08/03/21 propranolol 10 mg PO TID 09/05/19 08/03/21 albuterol sulfate 2 puff INHALATION Q4H PRN 04/19/20 08/03/21 cetirizine 10 mg PO DAILY 04/19/20 08/03/21 lamotrigine 150 mg PO BID 04/19/20 08/03/21 Allergies Allergy/AdvReac Type Severity Reaction Status Date / Time No Known Allergies Allergy Verified 08/03/21 08:19 Review of Systems Review of Systems: CONSTITUTIONAL: Denies body aches, fever, chills ENT: Denies rhinorrhea, congestion, sore throat, or otalgia. Reports dental pain CARDIOVASCULAR: Denies chest pain, palpitations RESPIRATORY: Denies cough or dyspnea. SKIN: Denies rash, itching, or wounds. MUSCULOSKELETAL: Denies myalgia. NEUROLOGIC: Denies headache, numbness, tingling, or weakness. [facility] Past Medical History Medical History Anxiety Bipolar disorder Bronchitis Deliberate self-cutting Depression Foot fracture, right GERD (gastroesophageal reflux disease) Nasal fracture UTI (urinary tract infection) Surgical History Surgical History No significant past surgical history Family History Family History Other No significant family history Social History Social History Smoking status: Former smoker Alcohol intake: current Alcohol use details: occasional Substance use: never Gender identity (if verbalized by the patient): Female Comments At time of signature, I have reviewed and agree with nursing past medical, surgical, social and family history unless otherwise noted. Please see nursing chart for further information. There is no relevant family history pertinent to the presenting complaint Exam Narrative: GENERAL: Appears in pain; in no acute distress. HEAD: Normocephalic, atraumatic. EYES: EOMI. No redness or drainage. Conjunctivae normal. ENT: Left lower dental pain reported around #18, 19, minimal redness/swelling to gums without apparent abscess or drainage; tender to palpation, teeth are discolored/dark at gumline; Mucous membranes pink and moist. TMs normal bilaterally. Throat normal. Uvula midline. NECK: Normal AROM. Supple. No lymphadenopathy. CHEST: No respiratory distress. Clear to auscultation. HEART: Regular rate and rhythm. No murmur appreciated. ABDOMEN: Soft, nontender, nondistended, normal active bowel sounds. SKIN: Warm, dry, no rash. Normal skin turgor. NEURO: No focal deficits. Alert and oriented x3. Gait steady. Course Course Emergency Course: Patient is aware of diagnosis, understands and agrees to treatment plan. Anticipatory guidance given. Patient agrees to follow-up as directed and is aware of reasons to seek care at the emergency department. Portions of this record may have been created with voice recognition software Level of Care: Expr
== END 2021-08-03 08:35 | disposition home or self-care (01) ==
PROVIDERS: Emergency Provider Nurse Practitioner Family; PCP Nurse Practitioner Family
DX: K08.89 Other specified disorders of teeth and supporting structures (principal); Z87.891 Personal history of nicotine dependence; K21.9 Gastro-esophageal reflux disease without esophagitis; F31.9 Bipolar disorder, unspecified; F41.9 Anxiety disorder, unspecified
CPT/HCPCS: 99213; G0463

== ENCOUNTER 2022-07-13 19:13 | Emergency (ER) | payer OTHER, SELFPAY ==
[2022-07-13 19:16] VITALS: BP 132/83; PULSE 104; RESP 20; TEMP 37.2; O2SAT 97
--- NOTE | 2022-07-13 19:23 | ED.FEMALEGU ---
HPI - Female Genitourinary General Chief complaint: Urogenital-Female Stated complaint: Poss UTI Time Seen by Provider: 07/13/22 19:23 History of Present Illness HPI Narrative: PATIENT PRESENTS WITH URINARY SYMPTOMS NO GROSS HEMATURIA NO PELVIC PAIN NO FLANK PAIN NO CONCERN FOR STD Related Data Home Medications Medication Instructions Recorded Confirmed budesonide-formoterol HFA 160 2 puff inhalation Q12H 09/05/19 08/03/21 mcg-4.5 mcg/actuation aerosol inhaler (Symbicort) clonazepam 0.5 mg tablet 0.5 mg PO BID 09/05/19 08/03/21 montelukast 10 mg tablet 10 mg PO DAILY 09/05/19 08/03/21 propranolol 10 mg tablet 10 mg PO TID 09/05/19 08/03/21 albuterol sulfate 90 mcg/actuation 2 puff inhalation Q4H PRN sob 04/19/20 08/03/21 aerosol inhaler cetirizine 10 mg tablet 10 mg PO DAILY 04/19/20 08/03/21 lamotrigine 150 mg tablet 150 mg PO BID 04/19/20 08/03/21 Allergies Allergy/AdvReac Type Severity Reaction Status Date / Time nitrofurantoin Allergy Rash Verified 07/13/22 19:19 [From Macrobid] Review of Systems Review of Systems: CONSTITUTIONAL: DENIES FEVER, CHILLS, OR SWEATS. EYES: DENIES VISUAL CHANGES, REDNESS, OR DISCHARGE. ENT: DENIES RHINORRHEA, CONGESTION, SORE THROAT, OR OTALGIA. CARDIOVASCULAR: DENIES CHEST PAIN, PALPITATIONS, OR EDEMA. RESPIRATORY: DENIES COUGH OR DYSPNEA. GASTROINTESTINAL: DENIES ABDOMINAL PAIN, NAUSEA, VOMITING, OR DIARRHEA. GENITOURINARY: DENIES DYSURIA OR HEMATURIA. SKIN: DENIES RASH OR ITCHING. MUSCULOSKELETAL: DENIES BACK PAIN, JOINT PAIN, OR MYALGIA. NEUROLOGIC: DENIES HEADACHE, NUMBNESS, OR WEAKNESS. PSYCHIATRIC: DENIES ANXIETY OR DEPRESSION. [facility] Past Medical History Medical History Anxiety Bipolar disorder Bronchitis Deliberate self-cutting Depression Foot fracture, right GERD (gastroesophageal reflux disease) Nasal fracture UTI (urinary tract infection) Surgical History Surgical History No significant past surgical history Family History Family History Other No significant family history Social History Social History Smoking status: Former smoker Alcohol intake: current Alcohol use details: occasional Substance use: never Living arrangements: with family Gender identity (if verbalized by the patient): Female Comments AT TIME OF SIGNATURE, AGREE WITH NURSING PAST MEDICAL, SURGICAL, SOCIAL AND FAMILY HISTORY. THERE IS NO RELEVANT FAMILY HISTORY PERTINENT TO THE PRESENTING COMPLAINT Exam Narrative: GENERAL: WELL-APPEARING, WELL-NOURISHED, AND IN NO ACUTE DISTRESS. HEAD: NORMOCEPHALIC, ATRAUMATIC. EYES: PERRLA AND EOMI. ENT: NARES CLEAR, NO RHINORRHEA OR EPISTAXIS. MUCOUS MEMBRANES MOIST. NECK: SUPPLE. CHEST: CLEAR TO AUSCULTATION. NO RESPIRATORY DISTRESS. HEART: REGULAR RATE AND RHYTHM. NO MURMUR HEARD. NORMAL PERIPHERAL PULSES. ABDOMEN: SOFT, NONTENDER, NONDISTENDED, NORMAL ACTIVE BOWEL SOUNDS.NO PELVIC PAIN NO FLANK PAIN NO ABDOMINAL PAIN EXTREMITIES: NORMAL RANGE OF MOTION. NO EDEMA. SKIN: WARM, DRY, NO RASH. NEURO: NO FOCAL DEFICITS. ALERT AND ORIENTED X3. BOB COMA SCALE EYE OPENING: SPONTANEOUS 4 BOB COMA SCALE MOTOR: OBEYS COMMANDS 6 BOB COMA SCALE VERBAL: ORIENTED 5 BOB COMA SCALE TOTAL 15 Course Course Level of Care: Express Care Visit Vital Signs Vital signs: Vital Signs Temperature 37.2 C 07/13/22 19:16 Pulse Rate 104 H 07/13/22 19:16 Respiratory Rate 07/13/22 19:16 Blood Pressure 132/83 07/13/22 19:16 Pulse Oximetry 97 07/13/22 19:16 Oxygen Delivery Room Air 07/13/22 19:16 Temperature 37.2 C 07/13/22 19:16 Pulse Rate 104 H 07/13/22 19:16 Respiratory Rate 07/13/22 19:16 Blood Pressure 132/83 07/13/22 19:16 Pulse Oximetry 97
== END 2022-07-13 19:34 | disposition home or self-care (01) ==
PROVIDERS: Emergency Provider Nurse Practitioner Family; PCP Nurse Practitioner Family
DX: N39.0 Urinary tract infection, site not specified (principal); Z87.891 Personal history of nicotine dependence; K21.9 Gastro-esophageal reflux disease without esophagitis; F31.9 Bipolar disorder, unspecified; F41.9 Anxiety disorder, unspecified
CPT/HCPCS: 81003; 87086; 87088; 99213; G0463

== ENCOUNTER 2022-11-08 18:46 | Emergency (ER) | payer OTHER, SELFPAY ==
[2022-11-08 18:50] VITALS: BP 132/80; PULSE 111; RESP 16; TEMP 36.3; O2SAT 99
--- NOTE | 2022-11-08 18:55 | ED.SKABFB ---
HPI - Skin/Abscess/Foreign Bdy General Stated complaint: rash on right hand Source: patient and RN notes reviewed History of Present Illness HPI narrative: 22 yo F presents to urgent care with complaints of an itchy rash to her right index finger x 17 days. Pt states she first noticed after helping a friend move. Pt states it will itch and then burn at times. Pt denies any drainage from the rash. Pt denies any limited ROM, numbness, tingling, or other complaints. Pt has used OTC cortizone cream and Benadryl without relief. Related Data Home Medications Medication Instructions Recorded Confirmed budesonide-formoterol HFA 160 2 puff inhalation Q12H 09/05/19 11/08/22 mcg-4.5 mcg/actuation aerosol inhaler (Symbicort) clonazepam 0.5 mg tablet 0.5 mg PO BID 09/05/19 11/08/22 montelukast 10 mg tablet 10 mg PO DAILY 09/05/19 11/08/22 propranolol 10 mg tablet 10 mg PO TID 09/05/19 11/08/22 albuterol sulfate 90 mcg/actuation 2 puff inhalation Q4H PRN sob 04/19/20 11/08/22 aerosol inhaler cetirizine 10 mg tablet 10 mg PO DAILY 04/19/20 11/08/22 lamotrigine 150 mg tablet 150 mg PO BID 04/19/20 11/08/22 albuterol sulfate 2.5 mg/3 mL See Rx Instructions .Route .COMPLEX 11/08/22 11/08/22 (0.083 %) solution for nebulization fluoxetine 20 mg capsule 20 mg PO DAILY 11/08/22 11/08/22 levothyroxine 25 mcg tablet 25 mcg PO DAILY 11/08/22 11/08/22 Allergies Allergy/AdvReac Type Severity Reaction Status Date / Time nitrofurantoin Allergy Rash Verified 11/08/22 19:00 [From [employer]] Review of Systems Review of Systems: Pertinent positives and pertinent negatives per HPI. PMFSH Past Medical History Medical History Anxiety Bipolar disorder Bronchitis Deliberate self-cutting Depression Foot fracture, right GERD (gastroesophageal reflux disease) Nasal fracture UTI (urinary tract infection) Surgical History Surgical History No significant past surgical history Family History Family History Other No significant family history Social History Social History Smoking status: Former smoker Alcohol intake: current Alcohol use details: occasional Substance use: never Living arrangements: with family Gender identity (if verbalized by the patient): Female Comments At the time of my signature, I reviewed and agree with the nursing past medical, surgical, social, and family history. There is no relevant family history pertinent to the patient complaint. Exam Narrative: GENERAL: This is a well-nourished, well-developed patient, in no apparent distress. HEAD: normocephalic, atraumatic. EYES: Sclera clear/white. Vision is grossly intact. EARS: External ears normal, auditory canals clear and without drainage, TMs normal without perforation. Hearing grossly intact. NOSE: External nose normal with no obvious nasal discharge, nares without redness, no rhinorrhea. THROAT: Mucous membranes moist, posterior pharynx clear. NECK: Neck supple, non-tender without lymphadenopathy, masses or thyromegaly. CARDIOVASCULAR: Regular rate RESPIRATORY: No respiratory distress GASTROINTESTINAL: Abdomen soft, non-tender, nondistended. Bowel sounds are active. No hepato-splenomegaly, or palpable masses. No guarding. SKIN: patch of erythremia with few clear fluid papules noted to right index finger, dorsal side, approximately 2 cm x 2 cm. no drainage noted. no areas of induration noted. NEURO: awake, alert, and oriented to person, place and time. There were no obvious focal neurologic abnormalities. EXTREMITIES: No clubbing, cyanosis, or edema. No joint tenderness, effusion, or edema noted. Course Course Level of Care: Express Care Visit Vital Signs Vital signs: Vital Signs Temperature 97.
== END 2022-11-08 19:10 | disposition home or self-care (01) ==
PROVIDERS: Emergency Provider Nurse Practitioner Family; PCP Nurse Practitioner Family
DX: L30.9 Dermatitis, unspecified (principal); Z87.891 Personal history of nicotine dependence; K21.9 Gastro-esophageal reflux disease without esophagitis; F31.9 Bipolar disorder, unspecified; F41.9 Anxiety disorder, unspecified
CPT/HCPCS: 99213; G0463

== ENCOUNTER 2023-04-28 14:28 | Emergency (ER) | payer OTHER, SELFPAY ==
[2023-04-28 14:40] VITALS: BP 118/71; PULSE 77; RESP 20; TEMP 36.4; O2SAT 99
--- NOTE | 2023-04-28 14:48 | ED.URI ---
HPI - URI/Sore Throat General Chief Complaint: Upper Respiratory Infection Stated Complaint: Headache/Sore Throat Time Seen by Provider: 04/28/23 14:55 Source: patient and RN notes reviewed Mode of arrival: ambulatory Limitations: no limitations History of Present Illness HPI Narrative: 22-year-old female presents concern for COVID symptoms and COVID exposure. Reports she has been exposed twice over the last week. She reports she did a test earlier in her symptoms that was negative. Reports sore throat headache worsened yesterday. She reports she has been taking DayQuil. She denies fever, aches, chills. MD elicited complaint: cough and sore throat Related Data Home Medications Medication Instructions Recorded Confirmed budesonide-formoterol HFA 160 2 puff inhalation Q12H 09/05/19 04/28/23 mcg-4.5 mcg/actuation aerosol inhaler (Symbicort) clonazepam 0.5 mg tablet 0.5 mg PO BID 09/05/19 04/28/23 montelukast 10 mg tablet 10 mg PO DAILY 09/05/19 04/28/23 propranolol 10 mg tablet 10 mg PO TID 09/05/19 04/28/23 albuterol sulfate 90 mcg/actuation 2 puff inhalation Q4H PRN sob 04/19/20 04/28/23 aerosol inhaler cetirizine 10 mg tablet 10 mg PO DAILY 04/19/20 04/28/23 lamotrigine 150 mg tablet 150 mg PO BID 04/19/20 04/28/23 albuterol sulfate 2.5 mg/3 mL See Rx Instructions .Route .COMPLEX 11/08/22 04/28/23 (0.083 %) solution for nebulization fluoxetine 20 mg capsule 20 mg PO DAILY 11/08/22 04/28/23 levothyroxine 25 mcg tablet 25 mcg PO DAILY 11/08/22 04/28/23 Allergies Allergy/AdvReac Type Severity Reaction Status Date / Time nitrofurantoin Allergy Rash Verified 04/28/23 14:48 [From Macrobid] Review of Systems Review of Systems: CONSTITUTIONAL: Denies malaise, chills, sweats, or fever. EYES: Denies visual changes, redness, or discharge. ENT: Reports rhinorrhea, congestion, and sore throat. CARDIOVASCULAR: Denies chest pain, palpitations, or edema. RESPIRATORY: Reports cough. Denies dyspnea. GASTROINTESTINAL: Denies abdominal pain, nausea, vomiting, diarrhea SKIN: Denies rash or itching. MUSCULOSKELETAL: Denies myalgia. NEUROLOGIC: Reports headache. All systems reviewed & are unremarkable except as noted in HPI and below PMFSH Past Medical History Medical History Anxiety Bipolar disorder Bronchitis Deliberate self-cutting Depression Foot fracture, right GERD (gastroesophageal reflux disease) Nasal fracture UTI (urinary tract infection) Surgical History Surgical History No significant past surgical history Family History Family History Other No significant family history Social History Social History Smoking status: Former smoker Alcohol intake: current Alcohol use details: occasional Substance use: never Living arrangements: with family Gender identity (if verbalized by the patient): Female Comments At time of signature, agree with nursing past medical, surgical, social and family history. There is no relevant family history pertinent to the presenting complaint Exam Narrative: GENERAL: Well-appearing, well-nourished, and in no acute distress. HEAD: Normocephalic EYES: PERRLA, conjunctivae clear ENT: Nares clear. Mucous membranes moist. TM pearly almeida with sharp light reflex bilaterally; no tragal tenderness. Oropharynx not erythematous without lesions. Tonsils not enlarged and without exudate, no drooling, no hoarseness, no trismus, uvula midline. NECK: Supple. No lymphadenopathy CHEST: Clear to auscultation, breath sounds equal. No wheezing, rhonchi, rales, or stridor. No respiratory distress, speaks in full sentences. HEART: Regular rate and rhythm. No murmur heard. SKIN: Warm, dry, no rash. NEURO: Alert and oriented x3. PSYCH: Normal mood
[2023-04-28 14:50] VITALS: BP 118/71; PULSE 77; RESP 20; TEMP 36.4; O2SAT 99
== END 2023-04-28 15:16 | disposition home or self-care (01) ==
PROVIDERS: Emergency Provider Nurse Practitioner; PCP Nurse Practitioner Family
DX: J06.9 Acute upper respiratory infection, unspecified (principal); Z79.899 Other long term (current) drug therapy; Z87.891 Personal history of nicotine dependence; Z20.822 Contact with and (suspected) exposure to COVID-19
CPT/HCPCS: 87426; 99213; C9803; G0463

== ENCOUNTER 2023-06-11 10:18 | Outpatient (CLI) | payer OTHER, SELFPAY ==
[2023-06-11 19:36] LABS: Appearance Urine Cloudy (Clear); Bacteria Urine 2+ /hpf; Bilirubin Urine Negative (Negative); Blood Urine Negative (Negative); Color Urine Yellow (Yellow); Glucose Urine UA Negative (Negative); Ketones Urine Negative (Negative); Leukocyte Esterase Ur 2+ LEU/UL (NEGATIVE); Nitrate Urine Negative (Negative); Non Pathogenic Casts 0-2; Protein Urine Negative (Negative); RBC Urine 0-2 /hpf (0-2); Specific Grav Ur 1.017 (1.001-1.035); Squamous Epithelial Cell Urine Few /hpf (Few); Urobilinogen Urine 0.2 mg/dL (<2.0)
[2023-06-11 19:37] LABS: Hematocrit 46.2 % (37.0-47.0); Hemoglobin 14.7 g/dL (12.0-15.0); Mean Corpuscular HGB Conc 31.8 g/dl (32-36); Mean Corpuscular Hemoglobin 29.8 pg (26-34); Mean Corpuscular Volume 93.5 fl (80-100); Mean Platelet Volume 13.1 fl (7.4-10.4); Platelet Count Result 255 k/mm3 (150-375); Red Blood Count 4.94 M/mm3 (4.2-5.4); Red Cell Distribution Width 13.2 % (11.5-14.5); White Blood Count 8.3 K/mm3 (4.5-10.0)
[2023-06-11 19:38] LABS: Add Urine Microscopic? YES
[2023-06-11 19:42] LABS: Alanine Aminotransferase 67 U/L (6-35); Albumin Level 4.4 g/dL (3.5-5.1); Alkaline Phosphatase 81 U/L (38-126); Anion Gap 11 mmol/L (8-16); Aspartate Amino Transferase 62 U/L (14-36); Bilirubin,Total 0.4 mg/dL (0.2-1.3); Blood Urea Nitrogen 6 mg/dL (7-17); Calcium 9.6 mg/dL (8.4-10.2); Carbon Dioxide 29 mmol/L (22-30); Chloride 100 mmol/L (98-107); Cholesterol 199 mg/dL (0-200); Estimated Glomerular Filt Rate > 60; Glucose 123 mg/dL (65-110); HDL Direct 27 mg/dL; Magnesium 1.8 mg/dL (1.6-2.3); Potassium 3.5 mmol/L (3.4-5.0); Sodium 140 mmol/L (137-145); Triglycerides 242 mg/dL (<150)
[2023-06-11 19:53] LABS: LDL Cholesterol Direct 121 mg/dL
[2023-06-11 20:02] LABS: Free T4 Free Thyroxine 0.98 ng/mL (0.78-2.19)
[2023-06-11 20:56] LABS: Hemoglobin A1C 5.8 % (<5.7)
[2023-06-14 07:44] LABS: Insulin Level Total 185.6 uIU/mL (<=18.4)
[2023-06-14 12:25] LABS: DHEA-Sulfate 196 mcg/dL (18-391)
[2023-06-19 22:48] LABS: Free Insulin 118.1 uIU/mL (1.5-14.9)
== END 2023-06-11 10:19 | disposition home or self-care (01) ==
PROVIDERS: PCP Nurse Practitioner Adult Health; Visit Provider Nurse Practitioner Adult Health
DX: F41.9 Anxiety disorder, unspecified (principal); Z13.9 Encounter for screening, unspecified; E66.9 Obesity, unspecified; N92.6 Irregular menstruation, unspecified; N39.0 Urinary tract infection, site not specified; F31.9 Bipolar disorder, unspecified
CPT/HCPCS: 36415; 80053; 80061; 81001; 82607; 82627; 83036; 83525; 83527; 83735; 84439; 84443; 85027

== ENCOUNTER 2023-07-30 08:33 | Outpatient (CLI) | payer OTHER, SELFPAY ==
--- NOTE | 2023-08-06 11:58 | WPDHOLTEREM ---
Holter/Event Monitor Holter/Event Monitor Date of procedure: 07/30/23 Holter/Event Procedure: 48 Hr Holter Monitor Indications: Palpitations Conclusion: 1. 48 hour holter monitor on 07/30/23. 2. Underlying rhythm is sinus rhythm. HR range 39-130 bpm; average HR 84 bpm. HR at 39 bpm was at 06:53. 3. There are 117 premature supraventricular complexes, 40 supraventricular couplets and 3 supraventricular bigeminy. No supraventricular tachycardia. 4. No premature ventricular complexes. No ventricular tachycardia. 5. No sinoatrial or atrioventricular blocks. No significant pauses greater than 2 seconds. 6. No symptoms available for correlation.
== END 2023-07-30 08:34 | disposition home or self-care (01) ==
LOC: ANHCARD 08:34
PROVIDERS: PCP Nurse Practitioner Adult Health; Visit Provider Nurse Practitioner Adult Health
DX: R00.2 Palpitations (principal)
CPT/HCPCS: 93225; 93226

== ENCOUNTER 2024-03-01 08:36 | Emergency (ER) | payer OTHER, SELFPAY ==
--- NOTE | ~2024-03-01 | XR_ITS ---
XR elbow LT min 3V Ordering provider: ABRAHAM Kovacs History: . left elbow injury . Comparison: None. FINDINGS: BONES: No acute fracture or dislocation. JOINT SPACES: Normal. SOFT TISSUES: Normal. No definite joint effusion. IMPRESSION: No acute osseous abnormality left elbow. Reviewed, dictated and finalized at location A.
[2024-03-01 08:48] VITALS: BP 120/83; PULSE 99; RESP 18; TEMP 37.2; O2SAT 98
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
== END 2024-03-01 09:44 | disposition home or self-care (01) ==
PROVIDERS: Emergency Provider Nurse Practitioner Family; PCP Nurse Practitioner Adult Health
DX: S50.02XA Contusion of left elbow, initial encounter (principal); V49.50XA Passenger injured in collision with unspecified motor vehicles in traffic accident, initial encounter; K21.9 Gastro-esophageal reflux disease without esophagitis; F41.9 Anxiety disorder, unspecified; Z87.891 Personal history of nicotine dependence
CPT/HCPCS: 73080; 99213; G0463

== ENCOUNTER 2024-04-01 14:18 | Outpatient (CLI) | payer OTHER, SELFPAY ==
[2024-04-01 18:50] LABS: Alanine Aminotransferase 28 U/L (6-35); Albumin Level 4.7 g/dL (3.5-5.1); Alkaline Phosphatase 75 U/L (38-126); Anion Gap 10 mmol/L (4-12); Aspartate Amino Transferase 59 U/L (14-36); Bilirubin,Total 0.6 mg/dL (0.2-1.3); Blood Urea Nitrogen 4 mg/dL (7-17); Carbon Dioxide 29 mmol/L (22-30); Chloride 101 mmol/L (98-107); Cholesterol 215 mg/dL (0-200); Estimated Glomerular Filt Rate > 60; Glucose 96 mg/dL (65-110); HDL Direct 34 mg/dL; Potassium 3.6 mmol/L (3.4-5.0); Sodium 140 mmol/L (137-145); Triglycerides 151 mg/dL (<150)
[2024-04-01 19:01] LABS: LDL Cholesterol Direct 123 mg/dL
[2024-04-01 22:47] LABS: Hemoglobin A1C 5.4 % (<5.7)
== END 2024-04-01 14:19 | disposition home or self-care (01) ==
LOC: ANHBWCLAB 14:19
PROVIDERS: PCP Nurse Practitioner Adult Health; Visit Provider Nurse Practitioner Adult Health
DX: R73.03 Prediabetes (principal)
CPT/HCPCS: 36415; 80053; 80061; 83036

== ENCOUNTER 2024-04-04 19:34 | Emergency (ER) | payer OTHER, SELFPAY ==
--- NOTE | ~2024-04-04 | XR_ITS ---
XR finger 5th RT min 2V DATE: 04/04/2024 19:47 INDICATION: Injury; shut in car door TECHNIQUE: 4 views COMPARISON: None FINDINGS: No fracture or dislocation, periosteal reaction or bone destruction. No radiopaque foreign body or subcutaneous emphysema. IMPRESSION: Negative Reviewed, dictated and finalized at location A. CH DRAWER IMPRESSION: Negative
--- NOTE | 2024-04-04 19:39 | ED_ITS ---
HPI - General Adult General Chief complaint: Extremity Injury, Upper Stated complaint: Right Hand Finger Pain Time Seen by Provider: 04/04/24 19:39 Source: patient Mode of arrival: ambulatory Limitations: no limitations History of Present Illness HPI narrative: 23-year-old female patient presents to the [facility] with complaints of right pinky finger pain. Patient states she slammed in a car door after she got off work today. Patient states she came straight here afterwards. Denies taking anything for pain and denies icing it. Related Data Home Medications Medication Instructions Recorded Confirmed clonazepam 0.5 mg tablet 0.5 mg PO BID 09/05/19 04/04/24 Allergies Allergy/AdvReac Type Severity Reaction Status Date / Time nitrofurantoin Allergy Rash Verified 04/04/24 19:49 [From Macrobid] Review of Systems Review of Systems: CONSTITUTIONAL: Denies fever, chills, or sweats. EYES: Denies visual changes, redness, or discharge. ENT: Denies rhinorrhea, congestion, sore throat, or otalgia. CARDIOVASCULAR: Denies chest pain, palpitations, or edema. RESPIRATORY: Denies cough or dyspnea. GASTROINTESTINAL: Denies abdominal pain, nausea, vomiting, or diarrhea. GENITOURINARY: Denies dysuria or hematuria. SKIN: Denies rash or itching. MUSCULOSKELETAL: Denies back pain, joint pain, or myalgia. Positive right pinky finger pain NEUROLOGIC: Denies headache, numbness, or weakness. PSYCHIATRIC: Denies anxiety or depression. [facility] Past Medical History Medical History Anxiety Bipolar disorder Bronchitis Deliberate self-cutting Depression Foot fracture, right GERD (gastroesophageal reflux disease) Nasal fracture UTI (urinary tract infection) Surgical History Surgical History No significant past surgical history Family History Family History Father Hypertension Depression Asthma Mother Asthma Diabetes mellitus Depression Heart disease Disorder of thyroid Grandparent Asthma History of ETOH abuse Diabetes mellitus Depression Heart disease Cerebrovascular accident Disorder of thyroid Grandparent History of ETOH abuse Depression Heart disease Other No significant family history Social History Social History Smoking status: Former smoker Alcohol intake: never Alcohol use details: occasional Substance use: never Lack of Transportation: No Lack of Food: Never True Current Housing: I Have Housing Concerned About Future Housing: No Difficulty Paying Gas/Electric Bills: No Difficulty Paying for Meds: No Currently Unemployed: No Education: High School Diploma/GED Living arrangements: with family Gender identity (if verbalized by the patient): Female Agree to blood products: Yes Comments At the time of my signature I agree with nursing past medical history, surgical, social, and family history. There is no relevant family history pertinent to the presenting complaint. Exam Narrative: GENERAL: Well-appearing, well-nourished, and in no acute distress. HEAD: Normocephalic, atraumatic. EYES: PERRLA and EOMI. ENT: Nares clear, no rhinorrhea or epistaxis. Mucous membranes moist. NECK: Supple. No lymphadenopathy CHEST: Clear to auscultation. No respiratory distress. HEART: Regular rate and rhythm. No murmur heard. Normal peripheral pulses. ABDOMEN: Soft, nontender, nondistended, normal active bowel sounds. EXTREMITIES: The R pinky finger is with slight asymmetry to the distal joint compared to the left, no obvious deformity when compared to the L hand. No swelling, erythema, atrophy, or obvious deformity. No surface trauma, open wounds, nail avulsion, tissue avulsion, partial or complete amputation, subungual hematoma, bony deformity. Normal cascade of fingers. patient unable to completely straighten out the right pinky finger as compared to the left. Normal flexion of fingers. FDS and FDP intact aganist restistance. No focal fullness, thobbing pain, swelling of fingertip. tenderness to palpation Of the PIP and PIP joints. Pulses and cap refill. SKIN: Warm, dry, no rash. NEURO: No focal deficits. Alert and oriented x3. Course Course Level of Care: Express Care Visit Reevaluation(s) Reevaluation #1: Re-evaluated patient notified her that her x-ray is negative for any acute fractures. Discussed with her to take Tylenol and ibuprofen for the pain, ice it a couple of times a day and wear the splint that we have provided. Discussed with patient to follow-up with her primary doctor to assess for further evaluation of possible PT as needed. Patient verbalized understanding denies any other questions or concerns at this time. Date: 04/04/24 Time: 20:01 Vital Signs Vital signs: Vital Signs Temperature 36.6 C 04/04/24 19:48 Pulse Rate 102 H 04/04/24 19:48 Respiratory Rate 16 04/04/24 19:48 Blood Pressure 116/73 04/04/24 19:48 Pulse Oximetry 99 04/04/24 19:48 Temperature 36.6 C 04/04/24 19:48 Pulse Rate 102 H 04/04/24 19:48 Respiratory Rate 16 04/04/24 19:48 Blood Pressure 116/73 04/04/24 19:48 Pulse Oximetry 99 04/04/24 19:48 Vital signs reviewed. Medical Decision Making MDM Narrative Medical decision making narrative: Plan care patient's x-ray of the pinky finger to assess for any acute bone injury. I will reassess this patient once this has resulted. Differential Diagnosis Differential Diagnosis: Differential diagnosis: Paronychia, felon, cellulitis, flexor tenosynovitis, mallet finger, boutonniere deformity, flexor tendons, dislocated digits, unstable fracture, unstable ligamentous injury, closed space infection, carpal tunnel syndrome, contusion. Vital Signs Vital Signs: Vital Signs Temperature 36.6 C 04/04/24 19:48 Pulse Rate 102 H 04/04/24 19:48 Respiratory Rate 16 04/04/24 19:48 Blood Pressure 116/73 04/04/24 19:48 Pulse Oximetry 99 04/04/24 19:48 Temperature 36.6 C 04/04/24 19:48 Pulse Rate 102 H 04/04/24 19:48 Respiratory Rate 16 04/04/24 19:48 Blood Pressure 116/73 04/04/24 19:48 Pulse Oximetry 99 04/04/24 19:48 Imaging Data Radiologist's impression: [address] [place] [address] XRay Report Signed Patient: Neelam Cabrera : 2000 MR#: [id number] Age: 23 Acct:[id number] Loc: [id number] ADM Date: 04/04/24Attending Dr: Ordering Physician: Susan Grijalva APRN Date of Service: 04/04/24 Procedure(s): XR finger 5th RT min 2V Accession Number(s): [id number] cc: Lena Nguyen APRN; Susan Grijalva APRN~ XR finger 5th RT min 2V DATE: 04/04/2024 19:47 INDICATION: Injury; shut in car door TECHNIQUE: 4 views COMPARISON: None FINDINGS: No fracture or dislocation, periosteal reaction or bone destruction. No radiopaque foreign body or subcutaneous emphysema. IMPRESSION: Negative Reviewed, dictated and finalized at location A. SCAPER Dictated By: Shahbaz Wong MD 04/04/241951 Signed By: <Electronically signed by Shahbaz Wong MD in OV> Critical Care Time Critical Care Time Critical Care Time: No Discharge Plan Discharge Clinical Impression: Contusion of right little finger Qualifiers: Encounter type: initial encounter Damage to nail status: without damage Qualified Code(s): S60.051A - Contusion of right little finger without damage to nail, initial encounter Patient Disposition: Home, Self-Care Condition: Stable Instructions: Antibiotic Form, Finger Sprain (ED) Additional Instructions: Avoid weight bearing until the pain subsides. Ice to the area 20-30 minutes 4-6 times a day Elevate above heart Elastic wrap or orthopedic splint as directed for comfort for the next 5-7 days Tylenol for lesser pain Ibuprofen regularly for the next 2-3 days for the inflammation Follow up with your primary care provider if the condition is not improving within 1 week or sooner if the Condition worsens with numbness, tingling, decrease sensation with weakness to seek ER. Prescriptions: No Action clonazepam 0.5 mg Tablet 0.5 mg PO BID metformin 500 mg tablet extended release 24 hr See Rx Instructions .ROUTE .COMPLEX Qty: 90 0RF Dose Instruction: TAKE 1 TABLET BY MOUTH TWICE DAILY Rx Instructions: TAKE 1 TABLET BY MOUTH TWICE DAILY Follow-up/Referrals: Ludin Wade MD [Physician] - Vincent,Lena, [employer] [Primary Care Provider] - Stand Alone Forms: Work/School Release IP Time of Disposition: 19:59
[2024-04-04 19:48] VITALS: BP 116/73; PULSE 102; RESP 16; TEMP 36.6; O2SAT 99
== END 2024-04-04 20:06 | disposition home or self-care (01) ==
PROVIDERS: Emergency Provider Nurse Practitioner Family; PCP Nurse Practitioner Adult Health
DX: S60.051A Contusion of right little finger without damage to nail, initial encounter (principal); Z87.891 Personal history of nicotine dependence; Z79.899 Other long term (current) drug therapy; W23.0XXA Caught, crushed, jammed, or pinched between moving objects, initial encounter
CPT/HCPCS: 73140; 99213; G0463

== ENCOUNTER 2024-05-10 18:08 | Emergency (ER) | payer OTHER, SELFPAY ==
[2024-05-10 18:10] VITALS: BP 131/76; PULSE 89; RESP 20; TEMP 37.1; O2SAT 98
--- NOTE | 2024-05-10 18:30 | ED_ITS ---
HPI - Dental/Oral General Chief complaint: Dental/Oral Stated complaint: teeth infection Time Seen by Provider: 05/10/24 18:30 Source: patient Mode of arrival: ambulatory Limitations: no limitations History of Present Illness HPI Narrative: 23 yo F presents with c/o pain to L upper and L lower teeth. Called her dentist and can't get appt for 1 month. afebrile. All systems reviewed and negative except as noted above. Related Data Home Medications Medication Instructions Recorded Confirmed clonazepam 0.5 mg tablet 0.5 mg PO BID 09/05/19 05/10/24 fluoxetine 20 mg capsule 20 mg PO DAILY 05/10/24 05/10/24 lamotrigine 150 mg tablet 150 mg PO BID 05/10/24 05/10/24 propranolol 20 mg tablet 20 mg PO TID 05/10/24 05/10/24 trazodone 100 mg tablet 100 mg PO DAILY 05/10/24 05/10/24 Allergies Allergy/AdvReac Type Severity Reaction Status Date / Time nitrofurantoin Allergy Rash Verified 05/10/24 18:28 [From Macrobid] Review of Systems Review of Systems: CONSTITUTIONAL: Denies fever, chills, or sweats. EYES: Denies visual changes, redness, or discharge. ENT: Denies rhinorrhea, congestion, sore throat, or otalgia. Reports left upper and left lower dental pain. CARDIOVASCULAR: Denies chest pain, palpitations, or edema. RESPIRATORY: Denies cough or dyspnea. GASTROINTESTINAL: Denies abdominal pain, nausea, vomiting, or diarrhea. GENITOURINARY: Denies dysuria or hematuria. SKIN: Denies rash or itching. MUSCULOSKELETAL: Denies back pain, joint pain, or myalgia. NEUROLOGIC: Denies headache, numbness, or weakness. PSYCHIATRIC: Denies anxiety or depression. All other systems reviewed are negative, except as documented in HPI. [facility] Past Medical History Medical History Anxiety Bipolar disorder Bronchitis Deliberate self-cutting Depression Foot fracture, right GERD (gastroesophageal reflux disease) Nasal fracture UTI (urinary tract infection) Surgical History Surgical History No significant past surgical history Family History Family History Father Hypertension Depression Asthma Mother Asthma Diabetes mellitus Depression Heart disease Disorder of thyroid Grandparent Asthma History of ETOH abuse Diabetes mellitus Depression Heart disease Cerebrovascular accident Disorder of thyroid Grandparent History of ETOH abuse Depression Heart disease Other No significant family history Social History Social History Smoking status: Former smoker Alcohol intake: never Alcohol use details: occasional Substance use: never Lack of Transportation: No Lack of Food: Never True Current Housing: I Have Housing Concerned About Future Housing: No Difficulty Paying Gas/Electric Bills: No Difficulty Paying for Meds: No Currently Unemployed: No Education: High School Diploma/GED Living arrangements: with family Gender identity (if verbalized by the patient): Female Agree to blood products: Yes Comments At time of signature, agree with nursing past medical, surgical, social and family history. There is no relevant family history pertinent to the presenting complaint. Exam Narrative: GENERAL: This is a well-nourished, well-developed patient, in no apparent distress. HEAD: normocephalic, atraumatic. EYES: PERRL. Sclera clear/white. Vision is grossly intact. EARS: External ears normal NOSE: External nose normal MOUTH: pain to tooth #17, broken and decayed. pain to Tooth # 14. broken and decayed. no swelling to gums. mild erythema. no abscess. NECK: Neck supple, non-tender without lymphadenopathy, masses or thyromegaly. CARDIOVASCULAR: Regular rate and rhythm without murmurs, gallops, or rubs. RESPIRATORY: Clear to auscultation. Breath sounds equal bilaterally. No wheezes, rales, or rhonchi. SKIN: warm, Dry, intact with no suspicious lesions or rash, good texture and t urgor. NEURO: awake, alert, and oriented to person, place and time. There were no obvious focal neurologic abnormalities. EXTREMITIES: No joint tenderness, effusion, or edema noted. Course Course Level of Care: Express Care Visit Vital Signs Vital signs: Vital Signs Temperature 37.1 C 05/10/24 18:10 Pulse Rate 89 05/10/24 18:10 Respiratory Rate 20 05/10/24 18:10 Blood Pressure 131/76 05/10/24 18:10 Pulse Oximetry 98 05/10/24 18:10 Oxygen Delivery Room Air 05/10/24 18:10 Temperature 37.1 C 05/10/24 18:10 Pulse Rate 89 05/10/24 18:10 Respiratory Rate 20 05/10/24 18:10 Blood Pressure 131/76 05/10/24 18:10 Pulse Oximetry 98 05/10/24 18:10 Oxygen Delivery Room Air 05/10/24 18:10 Reviewed MDM - Dental/Oral MDM Narrative Medical decision making narrative: Patient is aware of diagnosis, understands and agrees to treatment plan. Anticipatory guidance given. Patient agrees to follow-up as directed and is aware of reasons to seek care at the emergency department. Portions of this record may have been created with voice recognition software Discharge Plan Discharge Clinical Impression: Dental infection Patient Disposition: Home, Self-Care Condition: Stable Instructions: Antibiotic Form, Toothache (ED) Additional Instructions: take antibiotic as prescribed until gone. Take ibuprofen or Tylenol every 6-8 hours as needed for pain. Follow-up with dentist at scheduled appointment. Prescriptions: New amoxicillin 875 mg tablet 875 mg PO Q12H 10 Days Qty: 20 0RF No Action trazodone 100 mg tablet 100 mg PO DAILY propranolol 20 mg tablet 20 mg PO TID fluoxetine 20 mg capsule 20 mg PO DAILY lamotrigine 150 mg tablet 150 mg PO BID clonazepam 0.5 mg Tablet 0.5 mg PO BID metformin 500 mg tablet extended release 24 hr See Rx Instructions .ROUTE .COMPLEX Qty: 90 3RF Dose Instruction: TAKE 1 TABLET BY MOUTH TWICE DAILY Rx Instructions: TAKE 1 TABLET BY MOUTH TWICE DAILY Follow-up/Referrals: Lena Nguyen APRN [Primary Care Provider] - Stand Alone Forms: Work/School Release IP Time of Disposition: 18:36
== END 2024-05-10 18:40 | disposition home or self-care (01) ==
PROVIDERS: Emergency Provider Nurse Practitioner Family; PCP Nurse Practitioner Adult Health
DX: K04.7 Periapical abscess without sinus (principal); K21.9 Gastro-esophageal reflux disease without esophagitis; F41.9 Anxiety disorder, unspecified; F31.9 Bipolar disorder, unspecified
CPT/HCPCS: 99213; G0463

== ENCOUNTER 2024-10-14 10:44 | Outpatient (CLI) | payer OTHER, SELFPAY ==
--- NOTE | ~2024-10-14 | US_ITS ---
Pelvic ultrasound. Clinical History: Ovarian cyst Technique: Realtime transabdominal and transvaginal scanning of the pelvis was performed. Color flow Doppler and Doppler spectral analysis were performed. Findings: The uterus is anteverted. The endometrial stripe has a thickness of 4 mm. No focal mass is identified. The right ovary measures 2.9 x 3.8 x 3.1 cm. No significant right ovarian or adnexal mass is seen. The left ovary measures 3.4 x 2.8 x 3.3 cm. No significant left ovarian or adnexal mass is seen. There is no evidence of free fluid in the cul de sac. Impression: Unremarkable pelvic ultrasound. Reviewed, dictated and finalized at location . Impression: Unremarkable pelvic ultrasound.
== END 2024-10-14 10:45 | disposition home or self-care (01) ==
LOC: MICIMG 10:45
PROVIDERS: PCP Student in an Organized Health Care Education/Training Program; Visit Provider Nurse Practitioner Adult Health
DX: N83.209 Unspecified ovarian cyst, unspecified side (principal)
CPT/HCPCS: 76830; 76856

== ENCOUNTER 2024-10-15 16:14 | Emergency (ER) | payer OTHER, SELFPAY | END 2024-10-15 16:50 | disposition home or self-care (01) | PROVIDERS: Emergency Provider Nurse Practitioner Family; PCP Nurse Practitioner Adult Health | DX: K04.7 Periapical abscess without sinus (principal); E28.2 Polycystic ovarian syndrome; F41.9 Anxiety disorder, unspecified; F17.290 Nicotine dependence, other tobacco product, uncomplicated | CPT/HCPCS: 99213; G0463 ==

== ENCOUNTER 2025-01-19 12:16 | Emergency (ER) | payer OTHER, MEDICAID, SELFPAY ==
[2025-01-19 12:20] VITALS: BP 112/76; PULSE 99; RESP 16; TEMP 36.4; O2SAT 98
--- NOTE | 2025-01-19 12:21 | ED.SKABFB ---
HPI - Skin/Abscess/Foreign Bdy General Chief complaint: Skin/Abscess/Foreign Body Stated complaint: RASH Time Seen by Provider: 01/19/25 12:25 Source: patient Mode of arrival: ambulatory Limitations: no limitations History of Present Illness HPI narrative: Neelam is a 24-year-old female patient presenting to the clinic today with complaints of a itchy/burning rash to the back of her neck, low back, and buttocks. Thought initially she may be having allergic reaction due to a hair dye. Symptoms started Friday night. Has applied Desitin to her low back and buttocks and applied hydrocortisone cream to her neck without relief. She reports the area itches but stings and chavez when she scratches it. No drainage. No other known environmental changes. Related Data Home Medications ?Medication ?Instructions ?Recorded ?Confirmed ?Last Taken ?Type clonazepam 0.5 mg tablet 0.5 mg PO BID 09/05/19 01/19/25 Unknown History budesonide-formoterol HFA 80 1 inh inhalation TID 10/14/24 01/19/25 Unknown History mcg-4.5 mcg/actuation aerosol inhaler (Symbicort) Allergies Allergy/AdvReac Type Severity Reaction Status Date / Time nitrofurantoin (From Allergy Rash Verified 01/19/25 12:23 Macrobid) Review of Systems Review of Systems: Pertinent positives per HPI. Patient denies any fever, chills, headache, visual changes, dizziness, cough, shortness of breath, chest pain, palpitations, nausea, vomiting, diarrhea, constipation, abdominal pain, or any urinary issues. PMFSH Past Medical History Medical History PCOS (polycystic ovarian syndrome) Deliberate self-cutting Anxiety Depression Bipolar disorder Nasal fracture Foot fracture, right UTI (urinary tract infection) GERD (gastroesophageal reflux disease) Bronchitis Surgical History Surgical History No significant past surgical history Family History Family History Father Hypertension Depression Asthma Mother Asthma Diabetes mellitus Depression Heart disease Disorder of thyroid Grandparent Asthma History of ETOH abuse Diabetes mellitus Depression Heart disease Cerebrovascular accident Disorder of thyroid Breast cancer Cervical cancer Grandparent History of ETOH abuse Depression Heart disease Other No significant family history Social History Social History Smoking status: Former smoker Alcohol intake: current Alcohol use details: rare Substance use: never Substance use type: does not use Do You Feel Safe in your Home?: Yes Lack of Transportation: No Lack of Food: Never True Current Housing: I Have Housing Concerned About Future Housing: No Difficulty Paying Gas/Electric Bills: No Difficulty Paying for Meds: No Currently Unemployed: No Education: High School Diploma/GED Living arrangements: with family Occupation/Education: occupation Gender identity (if verbalized by the patient): Female Sexual Orientation (if Verbalized by the Patient): Straight or Heterosexual Agree to blood products: Yes Comments At the time of my signature, I reviewed and agree with the nursing past medical, surgical, social, and family history. There is no relevant family history pertinent to the patient complaint. Exam Narrative: General: Well-developed, obese, in no apparent distress Head: Normocephalic, atraumatic. Cardio: Regular rate and rhythm, s1 and s2 normal, no murmur appreciated. Resp: Clear to auscultation bilaterally, no rhonchi, rales, wheezing or rubs. Integumentary: [place], warm, and dry, red, mildly raised, non indurated, excoriated, itching/burning rash to the posterior neck, low back, and buttocks Course Course Emergency Course: Portions of this record may have been created with voice recognition software. Level of Care: Express Care Visit Vital Signs Vital signs: Vital Signs Temperature 36.4 C 01/19/25 12:20 Pulse Rate 99 01/19/25 12:20 Respiratory Rate 16 01/19/25 12:20 Blood Pressure 112/76 01/19/25 12:20 Pulse Oximetry 98 01/19/25 12:20 Oxygen Delivery Room Air 01/19/25 12:20 Temperature 36.4 C 01/19/25 12:20 Pulse Rate 99 01/19/25 12:20 Respiratory Rate 16 01/19/25 12:20 Blood Pressure 112/76 01/19/25 12:20 Pulse Oximetry 98 01/19/25 12:20 Oxygen Delivery Room Air 01/19/25 12:20 Vital signs reviewed MDM - Skin/Abscess/Foreign Bdy MDM Narrative Medical decision making narrative: At the time of visit patient is resting comfortably on the exam table. Patient appears to be nontoxic. Complaints of a itchy/burning rash to the back of her neck, low back, and buttocks. Thought initially she may be having allergic reaction due to a hair dye. Symptoms started Friday night. Has applied Desitin to her low back and buttocks and applied hydrocortisone cream to her neck without relief. She reports the area itches but stings and chavez when she scratches it. No drainage. No other known environmental changes. On exam patient has red, dry, mildly raised, non indurated, excoriated, itching/burning rash to the posterior neck, low back, and buttocks Plan: I suspect patient has dermatitis/eczema. Prescription for prednisone and triamcinolone cream was sent to the pharmacy. Supportive measures were discussed with the patient and they voiced understanding discharge instructions and agrees to treatment plan. Return precautions reviewed Differential Diagnosis Differential diagnosis: Likely abscess of skin or subcutaneous tissue, viral exanthem, dermatophytosis, urticaria, herpes zoster, allergic reaction to drug, cellulitis, eczema, insect bites, impetigo and contact dermatitis Discharge Plan Discharge Clinical Impression: Dermatitis Patient Disposition: Home Condition: Stable Instructions: Antibiotic Form, Dermatitis (ED) Additional Instructions: Apply triamcinolone cream as directed Take prednisone as directed Avoid hot showers May apply moisturizing cream to the affected area twice a day-Cetaphil, Lubriderm, or Aquaphor Avoid scratching as this can cause a secondary infection May take benadryl 25-50mg every 6 hours as needed for itching. Follow up with your PCP in 3-5 days if symptoms persist or sooner if they worsen Go to the Emergency Room if symptoms worsen- fever, rash spreading with treatment, shortness of breath, tongue swelling, drooling, or chest pain Patient Language: Yakut Prescriptions: New prednisone 20 mg tablet 40 mg PO DAILY 5 Days Qty: 10 0RF triamcinolone acetonide 0.1 % cream 1 applic topical BID 7 Days Qty: 30 0RF No Action clonazepam 0.5 mg Tablet 0.5 mg PO BID budesonide-formoterol [Symbicort] 80-4.5 mcg/actuation HFA aerosol inhaler 1 inh inhalation TID metformin 500 mg tablet extended release 24 hr See Rx Instructions .ROUTE .COMPLEX Qty: 90 3RF Dose Instruction: TAKE 1 TABLET BY MOUTH TWICE DAILY Rx Instructions: TAKE 1 TABLET BY MOUTH TWICE DAILY Follow-up/Referrals: Lena Nguyen APRN [Primary Care Provider, [facility]] Time of Disposition: 12:29 Quality NIHSS Nursing Documentation ED NIHSS nursing documentation: reviewed/agree
== END 2025-01-19 12:32 | disposition home or self-care (01) ==
PROVIDERS: Emergency Provider Nurse Practitioner Family; PCP Nurse Practitioner Adult Health
DX: L30.9 Dermatitis, unspecified (principal); E28.2 Polycystic ovarian syndrome; K21.9 Gastro-esophageal reflux disease without esophagitis; F41.9 Anxiety disorder, unspecified; Z87.891 Personal history of nicotine dependence
CPT/HCPCS: 99213; G0463

== ENCOUNTER 2025-02-02 11:07 | Outpatient (CLI) | payer OTHER, MEDICAID, SELFPAY ==
[2025-02-02 12:20] LABS: Hemoglobin A1C 5.2 % (<5.7)
[2025-02-02 12:53] LABS: Thyroid Stimulating Hormone 2.500 uIU/mL (0.465-4.680)
[2025-02-03 09:08] LABS: LH 6.9 mIU/mL (.)
[2025-02-03 12:08] LABS: FSH 2.2 mIU/mL (.)
== END 2025-02-02 11:08 | disposition home or self-care (01) ==
PROVIDERS: PCP Nurse Practitioner Adult Health; Visit Provider Student in an Organized Health Care Education/Training Program
DX: E28.2 Polycystic ovarian syndrome (principal)
CPT/HCPCS: 36415; 82166; 83001; 83002; 83036; 84144; 84443

== ENCOUNTER 2025-04-04 15:16 | Outpatient (CLI) | payer OTHER, SELFPAY ==
--- OUTSIDE RECORDS SUMMARY | 2025-04-04 15:36 | XMS_ITS | Patient Health Record ---
Author Organization [facility] Address [address] [place] [address] Care Team Providers Care Tow Feeder Name Role Phone Lena Nguyen APRN Primary Care Provider Ilsa Ross Unavailable [phone] Allergies Allergen (clinical drug ingredient) Drug/Non Drug Allergy documented on EMR Reaction Allergy Type Onset Date Status nitrofurantoin Nitrofurantoin Unknown Drug Allergy Active Reason For Referral No Information Social History Sex Assigned At : Social History Observation Description Sex Assigned At Female [facility]ters [facility] [address] [facility] [address] [place] [address] 02/25/2025 Ilsa Castellanos Plan Of Treatment Next Appt Details Provider Name:Ilsa Castellanos , 05/16/2025 10:00:00 AM, [address], [place], [address], Insurance Providers Payer Name Payer Address Payer Phone Subscriber Number Group Number Insured Name Patient Relationship to Insured Coverage Start Date Coverage End Date [employer] Plan Management [address] [place] [address] [id number] Neelam Cabrera Self - patient is the insured Medical (General) History Medical History History ICD Code PCOS Deliberate Self cutting Anxiety Depression Bipolar UTI GERD Bronchitis
--- OUTSIDE RECORDS SUMMARY | 2025-04-04 15:36 | XMS_ITS | Clinical Summary ---
Author Organization [facility] Address [address] [place] [address] Phone Care Team Providers Care Foot Gatherer Name Role Phone Jojo Dean APRN, CNP Unavailable [phone] Jojo Dean APRN, CNP Primary Care Provider [phone] Allergies Active Allergy Reactions Criticality Noted Date Comments Nitrofurantoin Hives 10/01/2024 Medications lamoTRIgine (LAMICTAL) 25 MG Tablet Take 100 mg by mouth 2 times daily. Active permethrin (ACTICIN) 5 % CreamIndication s:Scabies Massage into skin from head to feet, leave on 8-14 hours, wash off. 60 g 1 9 Active Additional Information Patient not taking.Reported on 02/02/2019 clonazePAM (KLONOPIN) 1 MG Tablet Take 0.5 mg by mouth 3 times daily. Active ALBUTEROL SULFATE HFA IN take by inhalation. Active budesonide (PULMICORT FLEXHALER) 180 MCG/ACT AEROSOL POWDER, BREATH ACTIVATED take 2 Puffs by inhalation 2 times daily. Active propranolol (INDERAL) 10 MG Tablet Take 10 mg by mouth 3 times daily. Active traZODone (DESYREL) 100 MG Tablet Take 100 mg by mouth nightly. Active Montelukast Sodium (SINGULAIR PO) Take by mouth. Active Budesonide-Form oterol Fumarate (SYMBICORT IN) take by inhalation. Active fluticasone (FLONASE) 50 MCG/ACT SuspensionIndic ations:Right ear pain 1-2 Sprays by Nasal route daily. Use in each nostril as directed. 1 Bottle 0 Active ibuprofen (MOTRIN) 200 MG Tablet Take 3 Tablets by mouth every 6 hours as needed for Fever. 30 Tablet 1 Active propranolol (INDERAL) 10 MG Tablet Take 10 mg by mouth 2 times daily. Active cetirizine (ZyrTEC) 10 MG Tablet Take 10 mg by mouth daily. 1 Active albuterol 108 (90 Base) MCG/ACT Aerosol Solution INHALE 2 PUFFS BY MOUTH EVERY 4 HOURS NEEDED 1 Active Symbicort 160-4.5 MCG/ACT Aerosol INHALE 2 PUFFS BY MOUTH TWICE A DAY 1 Active clonazePAM (KlonoPIN) 0.5 MG Tablet Take 0.5 mg by mouth. Active lamoTRIgine (LAMICTAL) 150 MG Tablet TAKE 1 TABLET BY MOUTH TWICE A DAY WITH MEALS 1 Active montelukast (SINGULAIR) 10 MG Tablet Take 10 mg by mouth daily. 1 Active promethazine-de xtromethorphan (PROMETHAZINE-D M) 6.25-15 MG/5ML SyrupIndication s:Viral URI with cough Take 5 mL by mouth every 4 hours as needed for Cough. 240 mL 1 Active ondansetron (ZOFRAN) 4 MG TabletIndicatio ns:Nausea and Vomiting Take 1 Tablet by mouth every 8 hours as needed for Nausea - 1st line. Indications: Nausea and Vomiting 28 Tablet 5 Active emtricitabine-t enofovir (TRUVADA) 200-300 MG Tablet Take 1 Tablet by mouth daily. 30 Tablet 5 Active Active Problems No known active problems Family History Medical History Relation Name Comments Arrhythmia Father Diabetes Father Thyroid Disease Mother Relation Name Status Comments Father Alive Mother Alive Social History Tobacco Use Types Packs/Day Years Used Date Smoking Tobacco: Never Smokeless Tobacco: Never Alcohol Use Standard Drinks/Week Comments Never 0 (1 standard drink = 0.6 oz pur e alcohol) AUDIT-C Answer Date Recorded Frequency of Alcohol Consumption Never 02/02/2019 Average Number of Drinks Not on file 019 Frequency of Binge Drinking Not on file 07/2018 Sexually Active Control Partners Comments Yes Implant Male Comments No Sex and Gender Information Value Date Recorded Sex Assigned at Not on file Legal Sex Female 11:35 AM CDT Gender Identity Not on file Sexual Orientation Not on file Last Filed Vital Signs Vital Sign Reading Time Taken Comments Blood Pressure 124/72 10/01/2024 9:45 PM CDT Pulse 89 10/01/2024 9:45 PM CDT Temperature 36.2 C (97.2 F) 10/01/2024 6:52 PM CDT Respiratory Rate 16 10/01/2024 6:52 PM CDT Oxygen Saturation 98% 10/01/2024 9:45 PM CDT Inhaled Oxygen Concentration - - Weight 81.6 kg (180 lb) 10/01/2024 6:52 PM CDT Height 160 cm (5' 3) 10/01/2024 6:52 PM CDT Body Mass Index 31.89 10/01/2024 6:52 PM CDT Plan of Treatment Health Maintenance Due Date Last Done Comments Hepatitis C Virus (HCV) Screening 1999 Pap Smear 2020 Influenza Immunization (#1) 2025 10/0 06/2018, 03/24/2015, 02/23/2013, Additional history exists SARS-COV-2 Immunization ( season) 2025 04/16/2021, 10/08/2020, 09/13/2020 Respiratory Syncytial Virus (RSV) Immunization (Adult) (1 - 1-dose 75+ series) 2074 Hepatitis B Immunization Completed 001, 1999, 1999 Pneumococcal Immunization Combined Aged Out 09/01/2000 No longer eligible based on patient's age to complete this topic Human Papillomavirus (HPV) Immunization Completed 03/27/2012, 05/20/2011, 01/18/2011 Meningococcal B Immunization Discontinued 01/22/2016 Meningococcal Immunization (ACWY) Completed 01/22/2016, 01/18/2011 DTaP/Tdap/Td Immunization Discontinued 2019, 01/18/2011, 05/09/2004, Additional history exists TdaP Immunization Completed 11/20/2019, 01/18/2011 Rotavirus Immunization Aged Out No lo nger eligible based on patient's age to complete this topic Insurance [place] [address] [place] [address] Attn: [place] [address] [place] Care Teams Foot Gatherer Relationship Specialty Start Date End Date Jojo Dean APRN, CNP PCP - General Family Medicine 07/15/21 Jojo Dean APRN, CNP Family Medicine 07/15/21
[2025-04-04 16:34] LABS: Beta HCG Quantitative 8.76 mIU/ML
== END 2025-04-04 15:17 | disposition home or self-care (01) ==
LOC: ANHLAB 15:18
PROVIDERS: PCP Nurse Practitioner Adult Health; Visit Provider Student in an Organized Health Care Education/Training Program
DX: N91.2 Amenorrhea, unspecified (principal)
CPT/HCPCS: 36415; 84702

== ENCOUNTER 2025-04-06 07:12 | Outpatient (CLI) | payer OTHER, SELFPAY ==
[2025-04-06 08:20] LABS: Beta HCG Quantitative 23.98 mIU/ML
== END 2025-04-06 07:13 | disposition home or self-care (01) ==
LOC: ANHLAB 07:13
PROVIDERS: PCP Nurse Practitioner Adult Health; Visit Provider Student in an Organized Health Care Education/Training Program
DX: N91.2 Amenorrhea, unspecified (principal)
CPT/HCPCS: 36415; 84702

== ENCOUNTER 2025-04-13 07:14 | Outpatient (CLI) | payer OTHER, MEDICAID, SELFPAY | END 2025-04-13 07:15 | disposition home or self-care (01) | LOC: ANHLAB 07:15 | PROVIDERS: PCP Nurse Practitioner Adult Health; Visit Provider Student in an Organized Health Care Education/Training Program | DX: N92.6 Irregular menstruation, unspecified (principal) | CPT/HCPCS: 36415; 84702 ==

== ENCOUNTER 2025-04-20 13:50 | Emergency (ER) | payer OTHER, SELFPAY ==
--- NOTE | ~2025-04-20 | US_ITS ---
EXAMINATION: Ultrasound pelvis, OB, Limited: DATE: 04/20/2025. INDICATION: 24 year-old with LMP on 03/10/2025. Positive test. Vaginal bleeding. TECHNIQUE: Transabdominal and transvaginal ultrasound including Doppler were obtained. COMPARISON: None. FINDINGS: There is evidence of intrauterine gestational sac . pole and yolk sac are visualized. Sac diameter of 1 cm and probably rump length 2.3 mm corresponding to 5+ weeks of gestational age. heartbeat is not clearly visible. No adnexal mass or fluid collections. 2 cm corpus luteum cyst of the left ovary is noted. No free fluid. IMPRESSION: 1. intra uterine gestational sac. Yolk sac and pole are visualized. Gestational age based on sac diameter and crown-rump length is between 5 and 6 weeks. 2. heartbeat is not clearly visible. This could be due to early gestational age. Follow-up ultrasound is recommended if clinical signs and symptoms are stable to ensure viability of this . 3. No adnexal mass or fluid collections are seen. Reviewed, dictated and finalized at location T. UTIVE HOUSEKEEPER IMPRESSION: 1. intra uterine gestational sac. Yolk sac and pole are visualized. Gesta tional age based on sac diameter and crown-rump length is between 5 and 6 weeks . 2. heartbeat is not clearly visible. This could be due to early gestation al age. Follow-up ultrasound is recommended if clinical signs and symptoms are stable to ensure viability of this . 3. No adnexal mass or fluid collections are seen.
[2025-04-20 13:59] VITALS: BP 127/95; PULSE 94; RESP 17; TEMP 36.7; O2SAT 100
--- NOTE | 2025-04-20 15:29 | ED_ITS ---
HPI - General Adult General Chief complaint: Vaginal Bleeding <DENI Garcia - Last Filed: 04/20/25 16:17> Stated complaint: vaginal bleeding, 6 weeks <DENI Garcia - Last Filed: 04/20/25 16:17> Time Seen by Provider: 04/20/25 17:32 <DENI Garcia - Last Filed: 04/20/25 16:17> Focused HPI: 24 year old G0PI female presenting with diffuse lower abdominal cramping starting last night and then mild spotting this morning. She is currently 6 weeks . Denies nausea/vomiting/diarrhea, fever/chills, urinary complaints. No concern for STDs. Dr. Arroyo is her OBGYN and she is due to see him for the first time May 12. Hx of PCOS and was on fertility medication prior to this . GENERAL: No acute distress. HEAD: Normocephalic, atraumatic. CHEST: Clear to auscultation. ?No respiratory distress. HEART: Regular rate and rhythm.? NEURO: ?Alert and oriented x3. Patient screened in triage and initial orders placed.? ?Additional care and disposition to be based upon?diagnostic testing and treatment. <DENI Garcia - Last Filed: 04/20/25 16:17> History of Present Illness HPI narrative: I agree with above HPI. <Lise Fonseca APRN - Last Filed: 04/20/25 20:13> Related Data Home medications: Home Medications ?Medication ?Instructions ?Recorded ?Confirmed ?Last Taken ?Type clonazepam 0.5 mg tablet 0.5 mg PO BID 09/05/1902/07 Unknown History budesonide-formoterol HFA 80 1 inh inhalation TID 09/3002/07/25 Unknown History mcg-4.5 mcg/actuation aerosol inhaler (Symbicort) propranolol 10 mg tablet 10 mg PO TID PRN anxiety 02/07/25 Unknown History <DENI Garcia - Last Filed: 04/20/25 16:17> Allergies/adverse reactions: Allergies Allergy/AdvReac Type Severity Reaction Status Date / Time nitrofurantoin (From Allergy Rash Verified 04/20/25 17:15 Macrobid) <DENI Garcia - Last Filed: 04/20/25 16:17> Review of Systems 2 Review of Systems: All systems reviewed & are unremarkable except as noted in HPI and below <Lise Fonseca APRN - Last Filed: 04/20/25 20:13> [facility] Past Medical History Medical History: Medical History PCOS (polycystic ovarian syndrome) Deliberate self-cutting Anxiety Depression Bipolar disorder Nasal fracture Foot fracture, right UTI (urinary tract infection) GERD (gastroesophageal reflux disease) Bronchitis <DENI Garcia - Last Filed: 04/20/25 16:17> Surgical History Surgical History: Surgical History No significant past surgical history <DENI Garcia - Last Filed: 04/20/25 16:17> Family History Family History: Family History Father Hypertension Depression Asthma Mother Asthma Diabetes mellitus Depression Heart disease Disorder of thyroid Grandparent Asthma History of ETOH abuse Diabetes mellitus Depression Heart disease Cerebrovascular accident Disorder of thyroid Breast cancer Cervical cancer Grandparent History of ETOH abuse Depression Heart disease Other No significant family history <DENI Garcia - Last Filed: 04/20/25 16:17> Social History Social History: Social History Smoking status: Former smoker Alcohol intake: current Alcohol use details: rare Substance use: never Substance use type: does not use Do You Feel Safe in your Home?: Yes Lack of Transportation: No Lack of Food: Never True Current Housing: I Have Housing Concerned About Future Housing: No Difficulty Paying Gas/Electric Bills: No Difficulty Paying for Meds: No Currently Unemployed: No Education: High School Diploma/GED Living arrangements: with family Occupation/Education: occupation Gender identity (if verbalized by the patient): Female Sexual Orientation (if Verbalized by the Patient): Straight or Heterosexual Agree to blood products: Yes <DENI Garcia - Last Filed: 04/20/25 16:17> Exam 2 Narrative: GENERAL: Well appearing, well-nourished, non-toxic, in no acute distress. HEAD: Normocephalic, atraumatic. NECK: Supple. No adenopathy, no masses. RESPIRATORY: Airway patent, respirations nonlabored. Clear to auscultation bilaterally, no rales, rhonchi, wheezing. CARDIOVASCULAR: Regular rate and rhythm without murmurs, rubs, or gallops. Peripheral pulses 2+ and equal bilaterally. ABDOMINAL: Soft, nontender, nondistended, no hepatosplenomegaly. Normoactive BS. MUSCULOSKELETAL: Moves all extremities. Strength/ROM intact without gross deformities. SKIN: Warm, dry, normal color. No rashes. NEURO: A&O X3. Speech clear. Cranial nerves II-XII intact. No ataxic movements. PSYCHIATRIC: Appropriate mood and affect. Normal interaction. <Lise Fonseca APRN - Last Filed: 04/20/25 20:13> Course Vital Signs Vital signs: Vital Signs Temperature 36.7 C 04/20/25 13:59 Pulse Rate 94 04/20/25 13:59 Respiratory Rate 17 04/20/25 13:59 Blood Pressure 127/95 H 04/20/25 13:59 Pulse Oximetry 100 04/20/25 13:59 Oxygen Delivery Room Air 04/20/25 13:59 Temperature 36.7 C 04/20/25 13:59 Pulse Rate 111 H 04/20/25 17:01 Respiratory Rate 20 04/20/25 17:01 Blood Pressure 123/77 04/20/25 17:01 Pulse Oximetry 100 04/20/25 17:01 Oxygen Delivery Room Air 04/20/25 13:59 <DENI Garcia - Last Filed: 04/20/25 16:17> Vital Signs Temperature 36.7 C 04/20/25 13:59 Pulse Rate 94 04/20/25 13:59 Respiratory Rate 17 04/20/25 13:59 Blood Pressure 127/95 H 04/20/25 13:59 Pulse Oximetry 100 04/20/25 13:59 Oxygen Delivery Room Air 04/20/25 13:59 Temperature 36.7 C 04/20/25 13:59 Pulse Rate 111 H 04/20/25 17:01 Respiratory Rate 20 04/20/25 17:01 Blood Pressure 123/77 04/20/25 17:01 Pulse Oximetry 100 04/20/25 17:01 Oxygen Delivery Room Air 04/20/25 13:59 <Lise Fonseca APRN - Last Filed: 04/20/25 20:13> Medical Decision Making MDM Narrative Medical decision making narrative: 24 year old G0PI female presenting with diffuse lower abdominal cramping starting last night and then mild spotting this morning. She is currently 6 weeks . Denies nausea/vomiting/diarrhea, fever/chills, urinary complaints. No concern for STDs. Dr. Arroyo is her OBGYN and she is due to see him for the first time May 12. Hx of PCOS and was on fertility medication prior to this . * Pt reports she has been on Amoxicillin for a dental infection. Labs Ordered: CBC, CMP, UA, type and screen, beta hCG Imaging Ordered: Ob ultrasound Medications Ordered: 1 L normal saline IV bolus Results: Pt's OB indicates 1. intra uterine gestational sac. Yolk sac and pole are visualized. Gestational age based on sac diameter and crown-rump length is between 5 and 6 weeks. 2. heartbeat is not clearly visible. This could be due to early gestational age. Follow-up ultrasound is recommended if clinical signs and symptoms are stable to ensure viability of this . 3. No adnexal mass or fluid collections are seen. Diagnosis: vaginal yeast infection, intrauterine Consults: OBGYN (Cruz), already established outpatient Patient Education/Shared MDM: Results of lab work and imaging shared with patient. Patient strongly advised to maintain hydration status upon discharge and follow-up with her OBGYN as soon as they recommend. She will be discharged home with a prescription for Clotrimazole. Strict return precautions provided. Patient verbalized understanding and is in agreement with plan. Vital signs stable at time of discharge. All questions answered. <Lise Fonseca APRN - Last Filed: 04/20/25 20:13> Differential Diagnosis Differential Diagnosis: Urinary tract infection, intrauterine , threatened , yeast infection <Lise Fonseca APRN - Last Filed: 04/20/25 20:13> Vital Signs Vital Signs: Vital Signs Temperature 36.7 C 04/20/25 13:59 Pulse Rate 94 04/20/25 13:59 Respiratory Rate 17 04/20/25 13:59 Blood Pressure 127/95 H 04/20/25 13:59 Pulse Oximetry 100 04/20/25 13:59 Oxygen Delivery Room Air 04/20/25 13:59 Temperature 36.7 C 04/20/25 13:59 Pulse Rate 111 H 04/20/25 17:01 Respiratory Rate 20 04/20/25 17:01 Blood Pressure 123/77 04/20/25 17:01 Pulse Oximetry 100 04/20/25 17:01 Oxygen Delivery Room Air 04/20/25 13:59 <DENI Garcia - Last Filed: 04/20/25 16:17> Vital Signs Temperature 36.7 C 04/20/25 13:59 Pulse Rate 94 04/20/25 13:59 Respiratory Rate 17 04/20/25 13:59 Blood Pressure 127/95 H 04/20/25 13:59 Pulse Oximetry 100 04/20/25 13:59 Oxygen Delivery Room Air 04/20/25 13:59 Temperature 36.7 C 04/20/25 13:59 Pulse Rate 111 H 04/20/25 17:01 Respiratory Rate 20 04/20/25 17:01 Blood Pressure 123/77 04/20/25 17:01 Pulse Oximetry 100 04/20/25 17:01 Oxygen Delivery Room Air 04/20/25 13:59 <Lise Fonseca ART CONSERVATOR - Last Filed: 04/20/25 20:13> Lab Data Lab results reviewed: Yes I reviewed the patient's lab results. <Lise Fonseca ART CONSERVATOR - Last Filed: 04/20/25 20:13> Result diagrams: 04/20/25 17:04 04/20/25 17:04 <DENI Garcia - Last Filed: 04/20/25 16:17> Labs: Lab Results 04/20/25 04/20/25 04/20/25 Range/Units 17:04 17:07 18:32 WBC 7.7 (4.5-10.0) K/mm3 RBC 4.67 (4.2-5.4) M/mm3 Hgb 14.6 (12.0-15.0) g/dL Hct 42.1 (37.0-47.0) % MCV 90.1 (80-100) fl MCH 31.3 (26-34) pg MCHC 34.7 (32-36) g/dl RDW 12.1 (11.5-14.5) % Plt Count 254 (150-375) k/mm3 MPV 10.9 H (7.4-10.4) fl Immature Gran % (Auto) 0.3 (0-0.5) % Neut % (Auto) 69.2 (45.5-73.1) % Lymph % (Auto) 24.4 (18.3-44.2) % Price % (Auto) 5.2 (2.6-8.5) % Eos % (Auto) 0.6 (0-4.4) % Baso % (Auto) 0.3 (0.2-1.2) % Lymph # (Auto) 1.89 (0.9-3.2) K/mm3 Price # (Auto) 0.4 (0.1-0.6) K/mm3 Eos # (Auto) 0.1 (0-0.3) K/mm3 Baso # (Auto) 0.0 (0.0-0.1) K/mm3 Abs Immat Gran (auto) 0.02 (0.00-0.031) K/mm3 Absolute Neuts (auto) 5.4 (1.3-6.7) K/mm3 Absolute Nucleated RBC 0.000 (0.0-0.012) K/mm3 Nucleated RBC % 0.0 (0.0-0.2) % Sodium 138 (137-145) mmol/L Potassium 3.5 (3.4-5.0) mmol/L Chloride 101 (98-107) mmol/L Carbon Dioxide 26 (22-30) mmol/L Anion Gap 11 (4-12) mmol/L BUN 3 L (7-17) mg/dL Creatinine 0.47 L (0.7-1.0) mg/dL Estim Creat Clear Calc 149 ml/min Estimated GFR > 60 (59 - ) Glucose 102 (65-110) mg/dL Calcium 9.8 (8.4-10.2) mg/dL Total Bilirubin 0.4 (0.2-1.3) mg/dL AST 22 (14-36) U/L ALT 15 (6-35) U/L Alkaline Phosphatase 65 (38-126) U/L Total Protein 8.0 (6.3-8.2) g/dL Albumin 4.7 (3.5-5.1) g/dL Beta HCG, Quant 90588.00 mIU/ML Urine Color Yellow (Yellow) Urine Appearance Clear (Clear) Urine pH 8.0 (5.0-9.0) Ur Specific [place] 1.009 (1.001-1.035) Urine Protein Negative (Negative) mg/dL Urine Glucose (UA) Negative (Negative) mg/dL Urine Ketones Negative (Negative) mg/dL Ur Blood (Man) Trace (Negative) Urine Nitrate Negative (Negative) Urine Bilirubin Negative (Negative) Urine Urobilinogen 0.2 (<2.0) mg/dL Add Ur Microanalysis Reviewed Leukocyte Esterase Rfl 2+ H (Negative) BISHNU/UL Urine RBC 0-2 (0-2) /hpf Urine WBC 0-5 (0-3) /hpf Ur Squamous Epith Cells Occasional (Few) /hpf Urine Bacteria None seen /hpf Urine Casts 0-2 Urine Yeast (Budding) Present H (None) /hpf POC Urine HCG, Qual Positive (Negative) Blood Type A Positive Antibody Screen Negative <DENI Garcia - Last Filed: 04/20/25 16:17> Lab Results 04/20/25 04/20/25 04/20/25 Range/Units 17:04 17:07 18:32 WBC 7.7 (4.5-10.0) K/mm3 RBC 4.67 (4.2-5.4) M/mm3 Hgb 14.6 (12.0-15.0) g/dL Hct 42.1 (37.0-47.0) % MCV 90.1 (80-100) fl MCH 31.3 (26-34) pg MCHC 34.7 (32-36) g/dl RDW 12.1 (11.5-14.5) % Plt Count 254 (150-375) k/mm3 MPV 10.9 H (7.4-10.4) fl Immature Gran % (Auto) 0.3 (0-0.5) % Neut % (Auto) 69.2 (45.5-73.1) % Lymph % (Auto) 24.4 (18.3-44.2) % Price % (Auto) 5.2 (2.6-8.5) % Eos % (Auto) 0.6 (0-4.4) % Baso % (Auto) 0.3 (0.2-1.2) % Lymph # (Auto) 1.89 (0.9-3.2) K/mm3 Price # (Auto) 0.4 (0.1-0.6) K/mm3 Eos # (Auto) 0.1 (0-0.3) K/mm3 Baso # (Auto) 0.0 (0.0-0.1) K/mm3 Abs Immat Gran (auto) 0.02 (0.00-0.031) K/mm3 Absolute Neuts (auto) 5.4 (1.3-6.7) K/mm3 Absolute Nucleated RBC 0.000 (0.0-0.012) K/mm3 Nucleated RBC % 0.0 (0.0-0.2) % Sodium 138 (137-145) mmol/L Potassium 3.5 (3.4-5.0) mmol/L Chloride 101 (98-107) mmol/L Carbon Dioxide 26 (22-30) mmol/L Anion Gap 11 (4-12) mmol/L BUN 3 L (7-17) mg/dL Creatinine 0.47 L (0.7-1.0) mg/dL Estim Creat Clear Calc 149 ml/min Estimated GFR > 60 (59 - ) Glucose 102 (65-110) mg/dL Calcium 9.8 (8.4-10.2) mg/dL Total Bilirubin 0.4 (0.2-1.3) mg/dL AST 22 (14-36) U/L ALT 15 (6-35) U/L Alkaline Phosphatase 65 (38-126) U/L Total Protein 8.0 (6.3-8.2) g/dL Albumin 4.7 (3.5-5.1) g/dL Beta HCG, Quant 36030.00 mIU/ML Urine Color Yellow (Yellow) Urine Appearance Clear (Clear) Urine pH 8.0 (5.0-9.0) Ur Specific [place] 1.009 (1.001-1.035) Urine Protein Negative (Negative) mg/dL Urine Glucose (UA) Negative (Negative) mg/dL Urine Ketones Negative (Negative) mg/dL Ur Blood (Man) Trace (Negative) Urine Nitrate Negative (Negative) Urine Bilirubin Negative (Negative) Urine Urobilinogen 0.2 (<2.0) mg/dL Add Ur Microanalysis Reviewed Leukocyte Esterase Rfl 2+ H (Negative) BISHNU/UL Urine RBC 0-2 (0-2) /hpf Urine WBC 0-5 (0-3) /hpf Ur Squamous Epith Cells Occasional (Few) /hpf Urine Bacteria None seen /hpf Urine Casts 0-2 Urine Yeast (Budding) Present H (None) /hpf POC Urine HCG, Qual Positive (Negative) Blood Type A Positive Antibody Screen Negative <Lise Fonseca APRN - Last Filed: 04/20/25 20:13> Imaging Data Attestation: I personally reviewed and interpreted this imaging study as follows: < Lise Fonseca APRN - Last Filed: 04/20/25 20:13> Radiologist's impression: Impressions Obstetrics Ultrasound 04/20/25 18:10 IMPRESSION: 1. intra uterine gestational sac. Yolk sac and pole are visualized. Gestational age based on sac diameter and crown-rump length is between 5 and 6 weeks. 2. heartbeat is not clearly visible. This could be due to early gestational age. Follow-up ultrasound is recommended if clinical signs and symptoms are stable to ensure viability of this . 3. No adnexal mass or fluid collections are seen. <Lise Fonseca APRN - Last Filed: 04/20/25 20:13> Discharge Plan Discharge Clinical Impression: Vaginal yeast infection, Confirmed intrauterine on ultrasound, Vaginal bleeding during <DENI Garcia - Last Filed: 04/20/25 16:17> Patient Disposition: Home <DENI Garcia Last Filed: 04/20/25 16:17> Condition: Stable <DENI Garcia Last Filed: 04/20/25 16:17> Instructions: Antibiotic Form, (ED), Yeast Infection (ED) <DENI Garcia Last Filed: 04/20/25 16:17> Additional Instructions: Please return to the ER with any worsening symptoms. Follow-up with your OBGYN further evaluation treatment. Please complete your full dose antifungal medication. Remember to drink lots of water during . <DENI Garcia - Last Filed: 04/20/25 16:17> Patient Language: [place]ese <DENI Garcia - Last Filed: 04/20/25 16:17> Prescriptions: New clotrimazole [Clotrimazole-7] 1 % cream 1 appful vaginal HS 7 Days Qty: 45 0RF No Action clonazepam 0.5 mg Tablet 0.5 mg PO BID budesonide-formoterol [Symbicort] 80-4.5 mcg/actuation HFA aerosol inhaler 1 inh inhalation TID propranolol 10 mg tablet 10 mg PO TID PRN (Reason: anxiety) metformin 500 mg tablet extended release 24 hr See Rx Instructions .ROUTE .COMPLEX Qty: 90 3RF Dose Instruction: TAKE 1 TABLET BY MOUTH TWICE DAILY Rx Instructions: TAKE 1 TABLET BY MOUTH TWICE DAILY azithromycin 250 mg tablet See Rx Instructions PO .COMPLEX Qty: 6 0RF Rx Instructions: For 250 mg dose pack: take 500 mg today (day 1), then 250 mg for 4 days (days 2-5) PO methylprednisolone [Medrol (Chad)] 4 mg tablets,dose pack See Rx Instructions PO PER PKG DIR Qty: 21 0RF Rx Instructions: PO PER PKG DIR amoxicillin-pot clavulanate 875-125 mg tablet 1 tablet PO Q12H Qty: 20 0RF <DENI Garcia - Last Filed: 04/20/25 16:17> Follow-up/Referrals: Lena Nguyen APRN [Primary Care Provider, Family Practice] Marvin Arroyo MD [Physician, HOSPITAL SALES REPRESENTATIVE] <DENI Garcia - Last Filed: 04/20/25 16:17> Stand Alone Forms: Work/School Release IP <DENI Garcia - Last Filed: 04/20/25 16:17> Time of Disposition: 20:12 <DENI Garcia - Last Filed: 04/20/25 16:17> 20:12 <Lise Fonseca, ART CONSERVATOR - Last Filed: 04/20/25 20:13>
[2025-04-20 17:01] VITALS: BP 123/77; PULSE 111; RESP 20; O2SAT 100
[2025-04-20 17:09] LABS: BEDSIDEPREGUCG Positive (Negative)
--- NOTE | 2025-04-20 17:14 | PC.NURSE ---
pt reports that she has been on fertility medications d/t difficulty conceiving
[2025-04-20 17:27] LABS: Hematocrit 42.1 % (37.0-47.0); Hemoglobin 14.6 g/dL (12.0-15.0); Immature Granulocyte Percent A 0.3 % (0-0.5); Lymphocytes Absolute Auto 1.89 K/mm3 (0.9-3.2); Mean Corpuscular HGB Conc 34.7 g/dl (32-36); Mean Corpuscular Hemoglobin 31.3 pg (26-34); Mean Corpuscular Volume 90.1 fl (80-100); Nucleated Red Blood Cells Absolute Auto 0.000 K/mm3 (0.0-0.012); Nucleated Red Blood Cells Perc 0.0 % (0.0-0.2); Platelet Count Result 254 k/mm3 (150-375); Red Blood Count 4.67 M/mm3 (4.2-5.4); White Blood Count 7.7 K/mm3 (4.5-10.0)
[2025-04-20 17:58] LABS: Alanine Aminotransferase 15 U/L (6-35); Albumin Level 4.7 g/dL (3.5-5.1); Alkaline Phosphatase 65 U/L (38-126); Anion Gap 11 mmol/L (4-12); Aspartate Amino Transferase 22 U/L (14-36); Bilirubin,Total 0.4 mg/dL (0.2-1.3); Blood Urea Nitrogen 3 mg/dL (7-17); Calcium 9.8 mg/dL (8.4-10.2); Carbon Dioxide 26 mmol/L (22-30); Chloride 101 mmol/L (98-107); Estimated CRCL calculation 149 ml/min; Estimated Glomerular Filt Rate > 60; Glucose 102 mg/dL (65-110); Potassium 3.5 mmol/L (3.4-5.0); Sodium 138 mmol/L (137-145); Total Protein 8.0 g/dL (6.3-8.2)
[2025-04-20] MEDS: SODIUM CHLORIDE 0.9% IV 1,000 ML 999 ML IV CONT (18:48)
[2025-04-20 19:35] LABS: Add Urine Microscopic? YES; Appearance Urine Clear (Clear); Budding Yeast Urine Present /hpf; Glucose Urine UA Negative (Negative); Leukocyte Esterase Ur 2+ LEU/UL (Negative); Need Manual Microscopic Reviewed; Nitrate Urine Negative (Negative); Non Pathogenic Casts 0-2; Specific Grav Ur 1.009 (1.001-1.035)
--- OUTSIDE RECORDS SUMMARY | 2025-04-20 20:45 | XMS_ITS | Clinical Summary ---
Author Organization [facility] Address [address] [place] [address] Phone Care Team Providers Care Manager Developmental Name Role Phone Jojo Dean APRN, CNP Unavailable [phone] Jojo Dean APRN, CNP Primary Care Provider [phone] Allergies Active Allergy Reactions Criticality Noted Date [...] on patient's age to complete this topic Varicella Immunization Completed 04/13/2007, 2000 Human Papillomavirus (HPV) Immunization Completed 03/27/2012, 05/20/2011, 01/18/2011 Meningococcal B Immunization Discontinued 01/22/2016 Meningococcal Immunization (ACWY) Completed 01/22/2016, 01/18/2011 DTaP/Tdap/Td Immunization Discontinued 2019, 01/18/2011, 05/09/2004, Additional history exists TdaP Immunization Completed 11/20/2019, 01/18/2011 Rotavirus Immunization Aged Out No lo nger eligible based on patient's age to complete this topic Insurance [place] [place] [address] Attn: Accounts Payable [place] [address] [place] [address] Care Teams Manager Developmental Relationship Specialty Start Date End Date Jojo Dean APRN, CNP PCP - General Family Medicine 07/15/21 Jojo Dean APRN, CNP Family Medicine 07/15/21
--- OUTSIDE RECORDS SUMMARY | 2025-04-20 20:45 | XMS_ITS | Patient Health Record ---
Author Organization [facility] Address [address] [place] [address] Care Team Providers Care Political Anthropologist Name Role Phone Lena Nguyen APRN Primary Care Provider Ilsa Ross Unavailable [phone] Allergies Allergen (clinical drug ingredient) Drug/Non Drug Allergy documented on EMR Reaction Allergy Type Onset Date Status nitrofurantoin Nitrofurantoin Unknown Drug Allergy Active Reason For Referral No Information Social History Sex Assigned At : Social History Observation Description Sex Assigned At Female Encounters En[facility] [address] [facility] [address] [place] [address] 02/25/2025 Ilsa Castellanos Plan Of Treatment Next Appt Details Provider Name:Ilsa Castellanos , 05/16/2025 10:00:00 AM, [address], [place], [address], Insurance Providers Payer Name Payer Address Payer Phone Subscriber Number Group Number Insured Name Patient Relationship to Insured Coverage Start Date Coverage End Date [employer] Benef[employer] Plan Management [address] [place] [address] [id number] Neelam Cabrera Self - patient is the insured Medical (General) History Medical History History ICD Code PCOS Deliberate Self cutting Anxiety Depression Bipolar UTI GERD Bronchitis
--- OUTSIDE RECORDS SUMMARY | 2025-04-21 00:59 | XMS_ITS | Patient Health Record ---
Author Organization [facility] Address [address] [place] [address] Care Team Providers Care Health Physicist Name Role Phone Lena Nguyen APRN Primary Care Provider Ilsa Ross Unavailable [phone] Allergies Allergen (clinical drug ingredient) Drug/Non Drug Allergy documented on EMR Reaction Allergy Type Onset Date Status nitrofurantoin Nitrofurantoin Unknown Drug Allergy Active Reason For Referral No Information Social History Sex Assigned At : Social History Observation Description Sex Assigned At Female Encounters Encounter [facility] Date [facility] [address] [facility] [address] [place] [address] 02/25/2025 Ilsa Castellanos Plan Of Treatment Next Appt Details Provider Name:Ilsa Castellanos , 05/16/2025 10:00:00 AM, [address], [address], Insurance Providers Payer Name Payer Address Payer Phone Subscriber Number Group Number Insured Name Patient Relationship to Insured Coverage Start Date Coverage End Date [employer] Benef[employer] Plan Management [address] [place] [address] [id number] Neelam Cabrera Self - patient is the insured Medical (General) History Medical History History ICD Code PCOS Deliberate Self cutting Anxiety Depression Bipolar UTI GERD Bronchitis
--- OUTSIDE RECORDS SUMMARY | 2025-04-21 00:59 | XMS_ITS | Clinical Summary ---
Author Organization [facility] Address [address] [place] [address] Phone Care Team Providers Care Mold Changer Name Role Phone Jojo Dean APRN, CNP Unavailable [phone] Jojo Dean APRN, CNP Primary Care Provider [phone] Allergies Active Allergy Reactions Criticality Noted Date [...] to complete this topic [place] [address] Attn: [facility]s [facility]able [facility] [place] [address] [place] Care Teams Mold Changer Relationship Specialty Start Date End Date Jojo Dean APRN, CNP PCP - General Family Medicine 07/15/21 Jojo Dean APRN, CNP Family Medicine 07/15/21
== END 2025-04-20 21:04 | disposition home or self-care (01) ==
PROVIDERS: Emergency Provider Registered Nurse; PCP Nurse Practitioner Adult Health
DX: O98.811 Other maternal infectious and parasitic diseases complicating pregnancy, first trimester (principal); B37.31 Acute candidiasis of vulva and vagina; O20.9 Hemorrhage in early pregnancy, unspecified; Z3A.01 Less than 8 weeks gestation of pregnancy; E28.2 Polycystic ovarian syndrome; K21.9 Gastro-esophageal reflux disease without esophagitis; F41.9 Anxiety disorder, unspecified; F31.9 Bipolar disorder, unspecified; Z87.440 Personal history of urinary (tract) infections; Z87.891 Personal history of nicotine dependence
CPT/HCPCS: 36415; 76801; 76817; 80053; 81001; 81025; 84702; 85025; 86850; 86900; 86901; 87086; 96360; 99284; J7030

== ENCOUNTER 2025-05-01 16:34 | Emergency (ER) | payer OTHER, SELFPAY ==
[2025-05-01 16:52] VITALS: BP 103/58; PULSE 80; RESP 16; TEMP 36.7; O2SAT 100
--- NOTE | 2025-05-01 18:37 | ED.DENTAL ---
HPI - Dental/Oral General Chief complaint: Dental/Oral Stated complaint: INFECTED TOOTH Time Seen by Provider: 05/01/25 17:25 Source: patient and RN notes reviewed Mode of arrival: ambulatory Limitations: no limitations History of Present Illness HPI Narrative: 24-year-old female patient presents today complaining of left lower dental pain x5 days with 4 day history of swelling to the left lower jawline. Patient states she is currently on the wait list for dentist. She is currently 7 weeks and has been taking Tylenol and ice pack without much relief. She denies fever, shortness of breath, difficulty swallowing, trismus. The affected tooth has been broken for some time. She was on Augmentin approximately 1 month ago for similar complaint. Related Data Home Medications ?Medication ?Instructions ?Recorded ?Confirmed ?Last Taken ?Type clonazepam 0.5 mg tablet 0.5 mg PO BID 09/05/19 02/07/25 Unknown History budesonide-formoterol HFA 80 1 inh inhalation TID 10/14/24 02/07/25 Unknown History mcg-4.5 mcg/actuation aerosol inhaler (Symbicort) propranolol 10 mg tablet 10 mg PO TID PRN anxiety 01/20/25 02/07/25 Unknown History Allergies Allergy/AdvReac Type Severity Reaction Status Date / Time nitrofurantoin (From Allergy Rash Verified 05/01/25 16:55 Macrobid) COUNTS INCLUDE 234 BEDS AT [facility] Past Medical History Medical History PCOS (polycystic ovarian syndrome) Deliberate self-cutting Anxiety Depression Bipolar disorder Nasal fracture Foot fracture, right UTI (urinary tract infection) GERD (gastroesophageal reflux disease) Bronchitis Surgical History Surgical History No significant past surgical history Family History Family History Father Hypertension Depression Asthma Mother Asthma Diabetes mellitus Depression Heart disease Disorder of thyroid Grandparent Asthma History of ETOH abuse Diabetes mellitus Depression Heart disease Cerebrovascular accident Disorder of thyroid Breast cancer Cervical cancer Grandparent History of ETOH abuse Depression Heart disease Other No significant family history Social History Social History Smoking status: Former smoker Alcohol intake: current Alcohol use details: rare Substance use: never Substance use type: does not use Lack of Transportation: No Lack of Food: Never True Current Housing: I Have Housing Concerned About Future Housing: No Difficulty Paying Gas/Electric Bills: No Difficulty Paying for Meds: No Currently Unemployed: No Education: High School Diploma/GED Living arrangements: with family Occupation/Education: occupation Gender identity (if verbalized by the patient): Female Sexual Orientation (if Verbalized by the Patient): Straight or Heterosexual Agree to blood products: Yes Comments At time of signature, I have reviewed and agree with nursing past medical, surgical, social and family history unless otherwise noted. Please see nursing chart for further information. There is no relevant family history pertinent to the presenting complaint Exam Narrative: GENERAL: Well-appearing, well-nourished, and in no acute distress. HEAD: Normocephalic, atraumatic. EYES: EOMI. No redness or drainage. Conjunctivae normal. ENT: Mucous membranes pink and moist. Throat normal. Uvula midline. Tooth 20 broken and posterior half is missing. No surrounding erythema or swelling of the gingiva. No obvious periapical abscess. No obvious jaw swelling at this time. Left lower jaw is tender to palpation. No swelling or redness of the neck. No sublingual tenderness. No trismus. NECK: Normal AROM. Supple. No lymphadenopathy. CHEST: No respiratory distress. EXTREMITIES: Normal range of motion. No edema. SKIN: Warm, dry, no rash. Capillary refill normal. Normal skin turgor. NEURO: No focal deficits. Alert and oriented x3. Gait steady. PSYCH: Normal affect. No signs of depression or anxiety. Course Course Level of Care: Express Care Visit Vital Signs Vital signs: Vital Signs Temperature 98.1 F 05/01/25 16:52 Pulse Rate 80 05/01/25 16:52 Respiratory Rate 16 05/01/25 16:52 Blood Pressure 103/58 L 05/01/25 16:52 Pulse Oximetry 100 05/01/25 16:52 Temperature 98.1 F 05/01/25 16:52 Pulse Rate 80 05/01/25 16:52 Respiratory Rate 16 05/01/25 16:52 Blood Pressure 103/58 L 05/01/25 16:52 Pulse Oximetry 100 05/01/25 16:52 Reviewed MDM - Dental/Oral MDM Narrative Medical decision making narrative: 24-year-old female patient presents today complaining of left lower dental pain x5 days with 4 day history of swelling to the left lower jawline. Patient states she is currently on the wait list for dentist. She is currently 7 weeks and has been taking Tylenol and ice pack without much relief. She denies fever, shortness of breath, difficulty swallowing, trismus. The affected tooth has been broken for some time. She was on Augmentin approximately 1 month ago for similar complaint. Upon exam,Tooth 20 broken and posterior half is missing. No surrounding erythema or swelling of the gingiva. No obvious periapical abscess. No obvious jaw swelling at this time. Left lower jaw is tender to palpation. No swelling or redness of the neck. No sublingual tenderness. No trismus. Patient will be started on a course of amoxicillin for dental infection. Recommend following up with a dentist as soon as possible. Strict ED precautions given. Vital signs stable. Patient agrees with plan. Differential Diagnosis Differential diagnosis: Likely gingival abscess, dental caries, toothache, dental abscess and fracture of tooth Critical Care Time Critical Care Time Critical Care Time: No Discharge Plan Discharge Clinical Impression: Dental infection Patient Disposition: Home Condition: Stable Instructions: Antibiotic Form, Dental Abscess (ED) Additional Instructions: Please take the amoxicillin as prescribed until gone. As discussed, please go to the ER immediately if symptoms worsen to include fever greater than 100.3, facial swelling, shortness of breath, difficulty swallowing, difficulty opening her mouth, redness or swelling to the left neck or chin area. Patient Language: Israeli Prescriptions: New amoxicillin 875 mg tablet 875 mg PO Q12H 10 Days Qty: 20 0RF No Action clonazepam 0.5 mg Tablet 0.5 mg PO BID budesonide-formoterol [Symbicort] 80-4.5 mcg/actuation HFA aerosol inhaler 1 inh inhalation TID propranolol 10 mg tablet 10 mg PO TID PRN (Reason: anxiety) metformin 500 mg tablet extended release 24 hr See Rx Instructions .ROUTE .COMPLEX Qty: 90 3RF Dose Instruction: TAKE 1 TABLET BY MOUTH TWICE DAILY Rx Instructions: TAKE 1 TABLET BY MOUTH TWICE DAILY clotrimazole [Clotrimazole-7] 1 % cream 1 appful vaginal HS 7 Days Qty: 45 0RF Follow-up/Referrals: Marvin Arroyo MD [Primary Care Provider, [employer]PER[employer]OR] Time of Disposition: 17:33
== END 2025-05-01 17:35 | disposition home or self-care (01) ==
PROVIDERS: Emergency Provider Nurse Practitioner; PCP Student in an Organized Health Care Education/Training Program
DX: K04.7 Periapical abscess without sinus (principal); Z87.891 Personal history of nicotine dependence; K21.9 Gastro-esophageal reflux disease without esophagitis; E28.2 Polycystic ovarian syndrome; F41.9 Anxiety disorder, unspecified
CPT/HCPCS: 99213; G0463

== ENCOUNTER 2025-05-27 15:41 | Outpatient (CLI) | payer OTHER, SELFPAY ==
--- OUTSIDE RECORDS SUMMARY | 2025-05-27 15:49 | XMS_ITS | Patient Health Record ---
Author Organization [facility] Address [address] [facility] [address] [place] [address] Care Team Providers Care Rehab Nurse Name Role Phone Lena Nguyen APRN Primary Care Provider Vielka Rouse Unavailable [phone] Ilsa Castellanos Unavailable [phone] Allergies Allergen (clinical drug ingredient) Drug/Non Drug Allergy documented on EMR Reaction Allergy Type Onset Date Status Information temporarily unavailable Nitrofurantoin Unknown Drug Allergy Active Reason For Referral No Information Social History Sex Assigned At : Social History Observation Description Sex Assigned At Female Encounters Encounter Location Date Provider Diagnosis [facility] [employer] [address] [address] 02/25/2025 Ilsa Castellanos [address] [address] 05/16/2025 Vielka Powers Plan Of Treatment No Information Insurance Providers Payer Name Payer Address Payer Phone Subscriber Number Group Number Insured Name Patient Relationship to Insured Coverage Start Date Coverage End Date [employer] Benefit Plan Management [address] [facility] [phone] [id number] Neelam Cabrera Self - patient is the insured Medical (General) History Medical History History ICD Code PCOS Deliberate Self cutting Anxiety Depression Bipolar UTI GERD Bronchitis
--- OUTSIDE RECORDS SUMMARY | 2025-05-27 15:49 | XMS_ITS | Clinical Summary ---
Author Organization [facility] Address [address] [place] [phone] Phone Care Team Providers Care Animal Physiology Teacher Name Role Phone Jojo Dean APRN, CNP Unavailable [phone] Jojo Dean APRN, CNP Primary Care Provider [phone] Allergies Active Allergy Reactions Criticality Noted Date [...] to complete this topic Insurance [place] [address] Attn: Accounts Payable [facility] [place] [address] [place] [address] Care Teams Animal Physiology Teacher Relationship Specialty Start Date End Date Jojo Dean APRN, CNP PCP - General Family Medicine 07/15/21 Jojo Dean APRN, CNP Family Medicine 07/15/21
[2025-05-27 16:24] LABS: Hematocrit 39.7 % (37.0-47.0); Hemoglobin 14.0 g/dL (12.0-15.0); Mean Corpuscular HGB Conc 35.3 g/dl (32-36); Mean Corpuscular Hemoglobin 31.4 pg (26-34); Mean Corpuscular Volume 89.0 fl (80-100); Platelet Count Result 244 k/mm3 (150-375); Red Blood Count 4.46 M/mm3 (4.2-5.4); White Blood Count 8.3 K/mm3 (4.5-10.0)
[2025-05-27 17:12] LABS: Syphilis IgG/IgM Antibody Non-Reactive (Nonreactive)
[2025-05-27 17:15] LABS: Hepatitis B Surface Antigen Negative (Negative)
[2025-05-27 17:24] LABS: HIV 1/2 Ab P24 Ag Result Negative (Negative)
[2025-05-28 05:07] LABS: Cytomegalovirus (CMV) Ab, IgG <0.60 U/mL (0.00-0.59); Cytomegalovirus (CMV) Ab, IgM <30.0 AU/mL (0.0-29.9); Varicella-Zoster Ab, IgG Non Reactive (Non Reactive)
[2025-05-30 15:09] LABS: Parvovirus B19, IgG 0.1 index (0.0-0.8); Parvovirus B19, IgM 0.1 index (0.0-0.8)
== END 2025-05-27 15:42 | disposition home or self-care (01) ==
LOC: ANHLAB 15:47
PROVIDERS: PCP Nurse Practitioner Adult Health; Visit Provider Student in an Organized Health Care Education/Training Program
DX: Z34.90 Encounter for supervision of normal pregnancy, unspecified, unspecified trimester (principal); Z3A.00 Weeks of gestation of pregnancy not specified
CPT/HCPCS: 36415; 84702; 85027; 86593; 86644; 86645; 86703; 86747; 86762; 86787; 86850; 86900; 86901; 87086; 87340; G0432

== ENCOUNTER 2025-05-30 13:28 | Outpatient (CLI) | payer OTHER, SELFPAY ==
--- OUTSIDE RECORDS SUMMARY | 2025-05-30 13:47 | XMS_ITS | Patient Health Record ---
Author Organization [facility] Address [address] [facility] [address] [place] [address] Care Team Providers Care Claims Clerk Name Role Phone Lena Nguyen APRN Primary Care Provider Vielka Rouse Unavailable [phone] Ilsa Castellanos Unavailable [phone] Allergies Allergen (clinical drug ingredient) Drug/Non Drug Allergy documented on EMR Reaction Allergy Type Onset Date Status nitrofurantoin Nitrofurantoin Unknown Drug Allergy Active Reason For Referral No Information Social History Sex Assigned At : Social History Observation Description Sex Assigned At Female Encounters Encounter Location Date Provider Diagnosis [facility] [employer] [address] [address] 02/25/2025 Ilsa Castellanos [address] [address] 05/16/2025 Vielka Powers Plan Of Treatment No Information Insurance Providers Payer Name Payer Address Payer Phone Subscriber Number Group Number Insured Name Patient Relationship to Insured Coverage Start Date Coverage End Date [employer] Benefit Plan Management [address] [place] [phone] [id number] Neelam Cabrera Self - patient is the insured Medical (General) History Medical History History ICD Code PCOS Deliberate Self cutting Anxiety Depression Bipolar UTI GERD Bronchitis
--- OUTSIDE RECORDS SUMMARY | 2025-05-30 13:47 | XMS_ITS | Clinical Summary ---
Author Organization [facility] Address [address] [place] [phone] Phone Care Team Providers Care Ingredient Scaler Helper Name Role Phone Jojo Dean APRN, CNP Unavailable [phone] Jojo Dean APRN, CNP Primary Care Provider [phone] Allergies Active Allergy Reactions Criticality Noted Date [...] to complete this topic Insurance [place] [address] Attn: Accounts Payable [facility] [place] [address] [place] [address] Care Teams Ingredient Scaler Helper Relationship Specialty Start Date End Date Jojo Dean APRN, CNP PCP - General Family Medicine 07/15/21 Jojo Dean APRN, CNP Family Medicine 07/15/21
[2025-05-31 06:07] LABS: Cytomegalovirus (CMV) Ab, IgG <0.60 U/mL (0.00-0.59)
== END 2025-05-30 13:29 | disposition home or self-care (01) ==
LOC: ANHLAB 13:38
PROVIDERS: PCP Nurse Practitioner Adult Health; Visit Provider Student in an Organized Health Care Education/Training Program
DX: Z34.90 Encounter for supervision of normal pregnancy, unspecified, unspecified trimester (principal); Z3A.00 Weeks of gestation of pregnancy not specified
CPT/HCPCS: 86644